=== PATIENT | male | born 1990 | race Caucasian/White ===

== ENCOUNTER 2022-10-23 23:57 | Emergency (ER) | payer MEDICAID, SELFPAY ==
[2022-10-24 00:01] VITALS: BP 121/75; PULSE 75; RESP 16; TEMP 36.6; O2SAT 99; BMI 42.9
[2022-10-24 00:16] LABS: MANUAL DIFF FLAG NO
[2022-10-24 00:17] LABS: Basophils Percent Auto 0.6 % (0-2); Eosinophils Absolute Auto 0.1 X10*3/uL (0.0-0.4); Eosinophils Percent Auto 1.1 % (0-4); Hematocrit 34.9 % (42.0-52.0); Hemoglobin 10.2 g/dl (14.0-18.0); Imm Gran Abs Auto 0.02 X10*3/uL (0.00-0.03); Imm Gran Pct Auto 0.3 % (0.0-0.4); Lymphocytes Absolute Auto 2.2 X10*3/uL (1.2-4.9); Lymphocytes Percent Auto 32.7 % (20-40); Mean Corpuscular HGB Conc 29.2 g/dl (31.0-36.0); Mean Corpuscular Hemoglobin 21.1 pg (27.0-33.0); Mean Corpuscular Volume 72.1 fL (80.0-98.0); Mean Platelet Volume 10.4 fL (9.4-12.4); Monocytes Absolute Auto 0.8 X10*3/uL (0.1-1.2); Monocytes Percent Auto 12.4 % (2-11); Neutrophils Absolute Auto 3.5 x10*3/uL (2.0-8.3); Neutrophils Percent Auto 52.9 % (45-73); Platelet Count 381 X10*3/uL (160-400); Red Blood Count 4.84 X10*6/uL (4.60-5.80); Red Cell Distribution Width 15.3 % (11.0-16.0); White Blood Count 6.6 X10*3/uL (4.8-10.8)
[2022-10-24 00:31] LABS: COVID-19 Test Positive (Negative); IDNOW Serial# BCCEAD1C
[2022-10-24 00:33] LABS: Alanine Aminotransferase 21 U/L (0-40); Alkaline Phosphatase 52 U/L (39-117); Anion Gap 15 (12-20); Aspartate Amino Transferase 27 U/L (5-37); Bilirubin Total 0.3 mg/dL (0.0-1.0); Blood Urea Nitrogen 9 mg/dL (9-16); Calcium 8.4 mg/dL (8.4-10.2); Carbon Dioxide 23 mmol/L (22-29); Chloride 107 mmol/L (96-108); Creatinine Clr Calc Pharmacy 136.1; Estimated Glomerular Filt Rate > 60; Glucose Random 77 mg/dL (60-115); Potassium 4.1 mmol/L (3.3-5.1); Sodium 141 mmol/L (135-145); Total Protein 6.5 g/dL (6.5-8.0)
--- NOTE | 2022-10-24 01:14 | ED.ABDPAIN ---
HPI - Abdominal Pain General Chief Complaint: Abdominal Pain Stated Complaint: Abd pain Time Seen by Provider: 10/24/22 00:46 Source: patient Mode of arrival: ambulatory Limitations: no limitations History of Present Illness HPI narrative: 32-year-old male with no significant past medical history presents to the emergency department today complaining of upper abdominal pain for approximately 48 hours. The patient describes moderate to severe pain left upper quadrant, intermittent, lasting for 5-10 seconds at a time. States when he has the pain, he does get a burning sensation in the throat. Does not notice any improvement or increase in symptoms with lying down or standing up. The patient denies a fever or chills. Has occasional dizziness. No other symptoms at this time. MD elicited complaint: abdominal pain Onset (ago): day(s) (1) Pain Consistency: intermittent Location: LUQ Severity: moderate Quality: cramping, stabbing and sharp Radiation: none Migration to: no migration Exacerbating factors: nothing Relieving factors: nothing Related Data Previous Rx's Medication Instructions Recorded famotidine 40 mg tablet (Pepcid) 40 mg PO DAILY #30 tabs 10/24/22 Allergies Allergy/AdvReac Type Severity Reaction Status Date / Time natalie Allergy Unknown SWELLING, Unverified 08/15/20 15:57 FLUSHING Review of Systems Constitutional: Denies chills, Denies fever(s) and Denies weakness Eyes: Denies diplopia and Denies eye discharge Denies nasal congestion and Denies sore throat Cardiovascular: Denies syncope, Denies Loss of Consciousness, Denies palpitations and Denies dyspnea Respiratory: Reports no additional respiratory complaints and Denies dyspnea Gastrointestinal: Reports abdominal pain, Reports melena, Denies constipation, Reports GI cramping, Reports heartburn, Denies diarrhea and Denies nausea Genitourinary: Reports no additional male genitourinary complaints Musculoskeletal: Reports no additional musculoskeletal complaints, Denies numbness and Denies tingling Skin/Breast: Reports system reviewed and no additional complaints, except as docu and Denies jaundice Denies Abnormal speech present, Denies syncope, Denies numbness, Denies Sensory deficit (Neuro), Denies tingling and Denies weakness Endocrine: Denies palpitations [facility] Past Medical History Attestation statement: The following information was validated with the patient. [facility] Narrative: Past medical, family and social history are unremarkable and noncontributory Source: nursing notes reviewed Social History Social History Advance Directives: No Advance Directives Information Provided: No Physical Exam ED Vital Signs: Vital Signs - 24 hr 10/24/22 00:01 Temperature 97.8 F Pulse Rate 75 Respiratory Rate 16 Blood Pressure 121/75 Pulse Oximetry 99 Oxygen Delivery Method Room Air BMI result Body Mass Index 42.9 Vital signs are Const General: cooperative, no acute distress, alert and awake; No diaphoretic Orientation/consciousness: patient oriented x3 Limitations: no limitations HENMT Head: Yes normal to inspection, Yes normocephalic and Yes atraumatic Ears: hearing grossly normal bilaterally General nose exam: Normal external nose present Face and sinus: Yes normal facial exam Mouth: Normal oral and palatal mucosa present Eyes General: appearance normal, both eyes and all related structures Conjunctivae: conjunctivae normal Sclerae: sclerae normal Pupils: Equal, round and reactive pupils present EOM: EOMs intact bilaterally Neck Neck: Yes normal visual inspection and Yes full ROM Resp Effort & Inspection: normal respiratory effort, normal respiratory pattern and no cough Cardio Rate: regular rate Rhythm: regular rhythm GI Inspection: Yes normal to inspection, No Abdominal wall edema and No distended Palpation (GI): not soft and Tenderness to palpation present (GI) in the LUQ Back/Spine/Pelvis Cervical Spine: normal cervical lordosis and cervical ROM normal Skin General skin exam: no rashes or lesions noted, no jaundice and no pallor Neuro General: patient oriented x3 and CN's II-XI intact bilaterally Cranial nerves: Yes Equal, round and reactive pupils present Cognition (Neuro): normal cognition Speech: No Abnormal speech present Motor exam (neuro): 5/5 motor strength present throughout Sensory Exam: No Sensory deficit (Neuro) Deep tendon reflexes (DTR's): Rt Biceps (C5, C6): 2+, Left biceps reflex intensity grade: 2+, Right patellar reflex intensity grade: 2+ and Left patellar reflex intensity grade: 2+ MDM - Abdominal Pain MDM Narrative Medical decision making narrative: 32-year-old male with abdominal pain normal for 48 hours. Notes a sensation of burning in his throat intermittently as well. Most likely diagnosis is gastritis versus peptic ulcer disease, although her reflux is certainly in the differential. Patient does describe some mild lightheadedness at times, and his hematocrit is slightly low, lending credence to the possibility of a slow, minimal GI bleed. The patient will be started on Pepcid, daily, as well as Maalox p.r.n.. He is instructed to follow-up with his primary care doctor on Wednesday and return for any new concerns or emergencies. Differential Diagnosis Differential diagnosis: Likely gastroenteritis, gastritis and peptic ulcer disease Lab Data Attestation: I reviewed the patient's lab results. Lab results narrative: Hematocrit slightly low at 35, no old for comparison Result diagrams: 10/24/22 00:11 10/24/22 00:11 Labs: Lab Results 10/24/22 10/24/22 10/24/22 Range/Units 00:11 00:11 00:11 WBC 6.6 (4.8-10.8) X10*3/uL RBC 4.84 (4.60-5.80) X10*6/uL Hgb 10.2 L (14.0-18.0) g/dl Hct 34.9 L (42.0-52.0) % MCV 72.1 L (80.0-98.0) fL MCH 21.1 L (27.0-33.0) pg MCHC 29.2 L (31.0-36.0) g/dl RDW 15.3 (11.0-16.0) % Plt Count 381 (160-400) X10*3/uL MPV 10.4 (9.4-12.4) fL Immature Gran % (Auto) 0.3 (0.0-0.4) % Neut % (Auto) 52.9 (45-73) % Lymph % (Auto) 32.7 (20-40) % Mobile % (Auto) 12.4 H (2-11) % Eos % (Auto) 1.1 (0-4) % Baso % (Auto) 0.6 (0-2) % Lymph # (Auto) 2.2 (1.2-4.9) X10*3/uL Mobile # (Auto) 0.8 (0.1-1.2) X10*3/uL Eos # (Auto) 0.1 (0.0-0.4) X10*3/uL Baso # (Auto) 0.0 (0.0-0.2) X10*3/uL Abs Immat Gran (auto) 0.02 (0.00-0.03) X10*3/uL Absolute Neuts (auto) 3.5 (2.0-8.3) x10*3/uL Absolute Nucleated RBC 0.000 (0.0-0.012) X10*3/uL Nucleated RBC % (auto) 0.0 (0.0-0.2) /100WBC Sodium 141 (135-145) mmol/L Potassium 4.1 (3.3-5.1) mmol/L Chloride 107 (96-108) mmol/L Carbon Dioxide 23 (22-29) mmol/L Anion Gap 15 (12-20) BUN 9 (9-16) mg/dL Creatinine 1.07 (0.5-1.4) mg/dL Estim Creat Clear Calc 136.1 Estimated GFR > 60 Random Glucose 77 (60-115) mg/dL Calcium 8.4 (8.4-10.2) mg/dL Total Bilirubin 0.3 (0.0-1.0) mg/dL AST 27 (5-37) U/L ALT 21 (0-40) U/L Alkaline Phosphatase 52 (39-117) U/L Total Protein 6.5 (6.5-8.0) g/dL Albumin 4.0 (3.5-5.0) g/dL COVID-19 (JOSE) Positive A (Negative) COVID-19 Clin Com See Note Discharge Plan Discharge Clinical Impression: Anemia Gastroesophageal reflux disease Qualifiers: Esophagitis presence: esophagitis presence not specified Qualified Code(s): K21.9 - Gastro-esophageal reflux disease without esophagitis Gastritis Qualifiers: Gastritis type: unspecified gastritis Chronicity: acute Gastritis bleeding: presence of bleeding unspecified Qualified Code(s): K29.00 - Acute gastritis without bleeding Patient Disposition: Home, Self-Care Instructions: Diet for Stomach Ulcers and Gastritis (ED), Gastroesophageal Reflux Disease (ED) Prescriptions: New famotidine [Pepcid] 40 mg tablet 40 mg PO DAILY Qty: 30 0RF
--- OUTSIDE RECORDS SUMMARY | 2022-10-24 01:14 | XMS_ITS | Continuity of Care Document ---
:1990 Author Organization [facility] Address [address] [place] [address]- Care Team Providers Name Role Phone Beckie Flores MD Primary Care Physician [phone] Encounter [facility] [place] Date(s): 08/20/22 - 09/19/22 [facility] [address] [place] [address] Attending Physician: Donovan Chavez Admitting Physician: Donovan Chavez Referring Physician: Donovan Chavez Allergies, Adverse Reactions, Alerts No Known Medication Allergies Substance Reaction Severity Status Fruit swelling(natalie) Active Medications hand therapy hand therapy, See Instructions, # 1 each, Refills 2, Tot. Refills 2, Maintenance, 2 a times week. 8 weeks. 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 Refills 1, Maintenance, Diagnosis= traumatic injury/laceration of the biceps triceps both upper extremities.., 12/03/16 17:10:23, Compound Start Date: 12/03/16 Status: Ordered Social History Social History Type Response Smoking Status Never smoker entered on: 08/25/16 Sex Patient Care team information PersonnelName: Beckie Flores MD Address: Address: [address] [place] [address] [address] [place] [address]-
--- OUTSIDE RECORDS SUMMARY | 2022-10-24 01:14 | XMS_ITS | Continuity of Care Document ---
:1990 Author Organization [facility] Address [address] [place] [id number]- Care Team Providers Name Role Phone Not on Staff, PCP Primary Care Physician Unavailable Encounter [facility] [place] Date(s): 10/21/22 - 10/21/[address] [address]- Encounter Diagnosis COVID (Final) - 10/21/22 Diarrhea (Final) - 10/21/22 Discharge Disposition: A-D/C Home Attending Physician: Tasia Parikh MD Admitting Physician: Tasia Parikh MD Referring Physician: Not on Staff, Referring MD Allergies, Adverse Reactions, Alerts No Known Medication [...] 17:10:23, Compound Start Date: 12/03/16 Status: Ordered Problem List Condition Confirmation Course Effective Dates Status Health Stat us Informant COVID-191 Confirmed 10/21/22 Active 1Problem added by Discern Expert Vital Signs Most recent to oldest [Reference Range]: 1 2 Oxygen Saturation [94-100 %] 98 % 98 % (10/21/22 11:43 AM) (10/21/22 9:11 AM) Pulse Rate [55-90 bpm] 89 bpm 104 bpm (10/21/22 11:43 AM) *H* (10/21/22 9:11 AM) Blood Pressure [90-138/55-84 mm Hg] 124/77 mm Hg 126/ 75 mm Hg (10/21/22 11:43 AM) (10/21/22 9:11 AM) Respiratory Rate [16-30 br/min] 20 br/min 20 br/mi n (10/21/22 11:43 AM) (10/21/22 9:11 AM) Temperature [96.8-100.4 DegF] 99.8 DegF 101.1 DegF (10/21/22 11:43 AM) *H* (10/21/22 9:11 AM) Mode of Delivery (Oxygen) Room air Room air (10/21/22 11:43 AM) (10/21/22 9:11 AM) Blood pressure sites Arm, right Arm, right (10/21/22 11:43 AM) (10/21/22 9:11 AM) Temperature Route Oral Oral (10/21/22 11:43 AM) (10/21/22 9:11 AM) Social History Social History Type Response Smoking Status Never smoker entered on: 08/25/16 Sex Patient Care team information Care Team PersonnelName: Not on Staff, PCP Position: [facility] Physician (General Medicine) Member Role: PCP Name: Tasia Parikh MD Position: [facility] ED Medicine MD Member Role: Admitting Physician Address: Address: [address] [place] [address]- Name: Chasity Tran RN Position: [facility] ED RN W/OE and Tasks Member Role: Patient Care Provider Care Team Related PersonsName: DELIA RODRÍGUEZ Address: home [address] [place] [address]
[2022-10-24 01:42] VITALS: BP 119/67; PULSE 79; RESP 14; TEMP 37.2; O2SAT 99
[2022-10-24] MEDS: Magnesium Hydrox/Alum Hydrox 30 ML ORAL.SUSP 15 ML PO (01:49)
[2022-10-24] MEDS: Lidocaine HCl Viscous 2 % 15 ML SOLUTION MUCOUS MEM (01:50)
[2022-10-24] MEDS: Famotidine 20 MG TABLET PO (01:51)
[2022-10-24] MEDS: oxyCODONE HCl Immed Release 5 MG TABLET 10 MG PO (02:42)
== END 2022-10-24 02:45 | disposition home or self-care (01) ==
PROVIDERS: Emergency Provider Emergency Medicine
DX: U07.1 COVID-19 (principal); K29.00 Acute gastritis without bleeding; K21.9 Gastro-esophageal reflux disease without esophagitis; D64.9 Anemia, unspecified
CPT/HCPCS: 80053; 85025; 87635; 99283

== ENCOUNTER 2022-12-16 11:44 | Outpatient (REF) | payer MEDICAID, SELFPAY ==
--- NOTE | ~2022-12-16 | CT_ITS ---
EXAMINATION: CT ABDOMEN AND PELVIS WITH CONTRAST CLINICAL INFORMATION: Severe abdominal pain. Crohn's disease suspected. COMPARISON: None TECHNIQUE: Multidetector volumetric images were obtained from the superior aspect of the liver through the pubic symphysis following administration 85 mL of Omnipaque 350 intravenous contrast. Sagittal and coronal reformatted images were obtained on the technologist's workstation. This CT examination was performed using dose optimization techniques as appropriate, variously including the following: *Automated exposure control *Adjustment of mA and/or kV according to patient size (this includes techniques or standardized protocols for targeted exams where dose is matched to indication/reason for exam; i.e. extremities or head) *Use of iterative reconstruction technique DLP: 737 mGy-cm FINDINGS: Visualized lung bases are well aerated. The liver demonstrates normal size, contour and attenuation. The gallbladder is normal in appearance. The pancreas, spleen and adrenal glands are unremarkable. Symmetrically enhancing kidneys. There is no hydronephrosis of either kidney. Normal distention of the stomach. There is mild diffuse circumferential thickening involving proximal loops of small bowel within the left upper abdomen, nonspecific. There are no dilated loops of small bowel identified. There is a focal area of irregular mucosal thickening involving the proximal aspect of the descending colon with mild adjacent pericolonic stranding (axial image 27/97 series 3 and coronal image 40/93 series 4). The remainder of the colon is unremarkable with only a mild stool burden. Normal caliber abdominal aorta. No retroperitoneal lymphadenopathy. The bladder is decompressed and therefore not accurately evaluated. The prostate gland is normal in size. No gross free pelvic fluid. No inguinal lymphadenopathy. No acute osseous abnormality. CT/CT abdomen pelvis w IV con IMPRESSION: 1. There is a focal area of irregular mucosal thickening involving the proximal aspect of the descending colon with mild adjacent pericolonic stranding. This is a nonspecific finding and may represent a focus of active inflammation, however, a colonic mass is also within the differential. Further evaluation with colonoscopy is recommended. 2. Mild diffuse circumferential thickening involving proximal loops of small bowel within the left upper abdomen. This is a nonspecific finding and may represent a mild enteritis. There are no dilated loops of small bowel identified. Fleischner guidelines were followed. Findings to be called to the ordering clinician by a [facility] Physician Flight Control Manager.
[2022-12-16] MEDS: iohexoL 350 MG/ML 100 ML INFUS..BTL 85 ML IV (14:38)
[2022-12-16] MEDS: Barium Sulfate Oral (Vanilla) 450 ML ORAL.SUSP 900 ML PO (14:46)
== END 2022-12-16 11:45 | disposition home or self-care (01) ==
LOC: HO.CT 11:44
PROVIDERS: PCP Registered Nurse; Visit Provider Registered Nurse
DX: R10.84 Generalized abdominal pain (principal); R85.7 Abnormal histological findings in specimens from digestive organs and abdominal cavity
CPT/HCPCS: 74177; Q9967

== ENCOUNTER 2022-12-23 14:43 | Outpatient (REF) | payer MEDICAID, SELFPAY ==
[2022-12-23 15:03] LABS: MANUAL DIFF FLAG NO
[2022-12-23 15:18] LABS: Basophils Absolute Auto 0.1 X10*3/uL (0.0-0.2); Basophils Percent Auto 0.9 % (0-2); Eosinophils Absolute Auto 0.4 X10*3/uL (0.0-0.4); Eosinophils Percent Auto 4.9 % (0-4); Hematocrit 34.4 % (42.0-52.0); Imm Gran Abs Auto 0.03 X10*3/uL (0.00-0.03); Imm Gran Pct Auto 0.4 % (0.0-0.4); Lymphocytes Absolute Auto 1.8 X10*3/uL (1.2-4.9); Lymphocytes Percent Auto 23.6 % (20-40); Mean Corpuscular HGB Conc 29.1 g/dl (31.0-36.0); Mean Corpuscular Volume 68.9 fL (80.0-98.0); Mean Platelet Volume 11.1 fL (9.4-12.4); Monocytes Absolute Auto 0.6 X10*3/uL (0.1-1.2); Monocytes Percent Auto 7.9 % (2-11); Neutrophils Absolute Auto 4.9 x10*3/uL (2.0-8.3); Neutrophils Percent Auto 62.3 % (45-73); Platelet Count 461 X10*3/uL (160-400); Red Blood Count 4.99 X10*6/uL (4.60-5.80); White Blood Count 7.8 X10*3/uL (4.8-10.8)
[2022-12-23 15:44] LABS: Alanine Aminotransferase 17 U/L (0-40); Albumin Level 3.9 g/dL (3.5-5.0); Alkaline Phosphatase 62 U/L (39-117); Anion Gap 12 (12-20); Aspartate Amino Transferase 23 U/L (5-37); Bilirubin Direct 0.2 mg/dL (0.0-0.5); Bilirubin Total 0.5 mg/dL (0.0-1.0); Blood Urea Nitrogen 10 mg/dL (9-16); C Reactive Protein 3.32 mg/dL (< or = 0.50); Calcium 9.2 mg/dL (8.4-10.2); Carbon Dioxide 25 mmol/L (22-29); Chloride 106 mmol/L (96-108); Estimated Glomerular Filt Rate > 60; Glucose Random 86 mg/dL (60-115); Lipase 23 U/L (8-78); Potassium 4.5 mmol/L (3.3-5.1); Sodium 138 mmol/L (135-145); Total Protein 6.5 g/dL (6.5-8.0)
[2022-12-23 16:34] LABS: Erythrocyte Sedimentation Rate 29 MM/HR (0-15)
== END 2022-12-23 14:44 | disposition home or self-care (01) ==
LOC: HO.LAB 14:43
PROVIDERS: PCP Registered Nurse; Visit Provider Internal Medicine
DX: R10.32 Left lower quadrant pain (principal); R11.0 Nausea; R19.7 Diarrhea, unspecified; R93.3 Abnormal findings on diagnostic imaging of other parts of digestive tract
CPT/HCPCS: 36415; 80048; 80076; 83690; 85025; 85652; 86140

== ENCOUNTER 2022-12-28 11:37 | Day surgery (SDC) | payer MEDICAID, SELFPAY ==
--- NOTE | 2022-12-25 14:24 | HO.ANESPROP2 ---
Documented by User: Martine Hines NP 12/25/22 14:25 HPI - Anesthesia Eval Consult details Narrative: 32yo M for Colonoscopy [facility] Past Medical History Medical History Asthma Surgical History Surgical History History of appendectomy Social History Social History Patient Tobacco Use Status: Never used Tobacco Use of substances other than those prescribed or required for medical reasons: No Advance Directives: No Advance Directives Information Provided: Yes Recently lost weight without trying: Yes How much weight loss: 34pounds or more Nutrition Risks: No Nutritional Risk Meds Allergies Allergy/AdvReac Type Severity Reaction Status Date / Time natalie Allergy Unknown SWELLING, Verified 12/28/22 12:20 FLUSHING Exam Exam Date and Time: December 25, 2022 1424 Pertinent Lab Results Pertinent Lab Results: Laboratory Tests 12/23/22 12/23/22 15:01 15:01 WBC 7.8 Hgb 10.0 L Hct 34.4 L Plt Count 461 H Sodium 138 Potassium 4.5 Chloride 106 Carbon Dioxide 25 BUN 10 Creatinine 1.30 Assessment and Plan Assessment Anesthesia Assessment: Chart Reviewed Documented by User: Juliette Bang MD 12/28/22 12:22 [facility] Past Medical History Medical History Asthma Functional capacity: independent ambulation Surgical History Surgical History History of appendectomy History of Problems with Anesthesia: No Social History Social History Patient Tobacco Use Status: Never used Tobacco Use of substances other than those prescribed or required for medical reasons: No Advance Directives: No Advance Directives Information Provided: Yes Recently lost weight without trying: Yes How much weight loss: 34pounds or more Nutrition Risks: No Nutritional Risk Travel History History of recent travel: No Recent Travel in [facility] Within the Last 8 Weeks: No Meds Allergies Allergy/AdvReac Type Severity Reaction Status Date / Time natalie Allergy Unknown SWELLING, Verified 12/28/22 12:20 FLUSHING Exam Airway Mallampati Class: II TM Dist: >3cm Neck ROM: Full Heart: RRR Lungs: CTA Assessment and Plan Final Anesthetic Review History of Problems with Anesthesia: No ASA Class: I Final Preanesthetic Review: No Changes in Pt Med Stat, Meds/Allgs Chart Reviewed, Consent Obtained/Reviewed and Anes Risks/Benef Reviewed Patient Risk: Low (J) Procedure Risk: Low Anesthetic Plan Anesthetic Plan: MAC: Disposition: Standard PACU
[2022-12-28 11:56] VITALS: BMI 38.0
[2022-12-28 12:02] VITALS: BP 120/64; PULSE 70; RESP 16; TEMP 36.6; O2SAT 96
[2022-12-28] MEDS: Lactated Ringers 1,000 ML 100 ML IVCONT (12:20)
--- NOTE | 2022-12-28 13:39 | HO.ANESPROP2 ---
[facility] Past Medical History Medical History Asthma Functional capacity: independent ambulation Surgical History Surgical History History of appendectomy History of Problems with Anesthesia: No Social History Social History Patient Tobacco Use Status: Never used Tobacco Use of substances other than those prescribed or required for medical reasons: No Advance Directives: No Advance Directives Information Provided: Yes Recently lost weight without trying: Yes How much weight loss: 34pounds or more Nutrition Risks: No Nutritional Risk Meds Allergies Allergy/AdvReac Type Severity Reaction Status Date / Time natalie Allergy Unknown SWELLING, Verified 12/28/22 12:20 FLUSHING Active Medications: Current Medications Albuterol Sulfate (Albuterol Sulfate (0.083%) 2.5 Mg/3 Ml Vial.Neb) 2.5 mg INHALE ONCE PRN PRN Reason: Shortness of Breath/Wheezing Lactated Ringer's (Lr) 1,000 mls @ 100 mls/hr IVCONT .Q10H ALYCIA Last Admin: 12/28/22 12:20 Dose: 100 mls/hr Sodium Biphosphate/Sodium Phosphate (Sodium Phosphate,Llano-Dibasic 133 Ml Enema) 133 ml [place] ONCE PRN PRN Reason: Poor Colonoscopy Prep Results Exam Exam Date and Time: December 28, 2022 1339 Height,Weight and Vital Signs: Height 5 ft 10 in Weight 120.202 kg Last Vital Signs Temp 97.9 F 12/28/22 12:02 Pulse 70 12/28/22 12:02 Resp 16 12/28/22 12:02 BP 120/64 12/28/22 12:02 Pulse Ox 96 12/28/22 12:02 O2 Del Method 12/28/22 12:02 Assessment and Plan Final Anesthetic Review History of Problems with Anesthesia: No ASA Class: II Final Preanesthetic Review: Meds/Allgs Chart Reviewed and Consent Obtained/Reviewed Patient Risk: Low Procedure Risk: Low Anesthetic Plan Anesthetic Plan: MAC: Disposition: Standard PACU
[2022-12-28 14:05] VITALS: BP 96/56; PULSE 82; RESP 16; TEMP 36.1; O2SAT 95
--- NOTE | 2022-12-28 14:10 | PM.OP ---
Brief Operative Note Date of Service: 12/28/22 Pre-op diagnosis: Abnormal CT of colon, change in bowel habits Post-op diagnosis: other (Colon mass c/w carcinoma) Procedure: Colonoscopy to the cecum and TI with biopsies and marking with submucosal ink Surgeon: Ron Jules Anesthesia: MAC Was an Paleology Professor used for this Procedure?: No Estimated blood loss (mL): 5.0 Pathology: other (A. Colon mass 40-50cm) Condition: stable Disposition: PACU
--- NOTE | 2022-12-28 14:14 | HO.POSTANES ---
Post Anesthesia Evaluation Post Anesthesia Evaluation Vital Signs: Vital Signs Temp Pulse Resp BP Pulse Ox O2 Del Method 12/28/22 14:05 97 F 82 16 96/56 L 95 Room Air 12/28/22 12:02 97.9 F 70 16 120/64 96 Room Air Anesthesia: Monitored Mental Status: Awake Pain Control: Satisfactory Nausea/Vomiting: None Hydration: Adequate Anesthesia-Related Issues: No Anes. Related Issues
[2022-12-28 14:20] VITALS: BP 104/61; PULSE 68; RESP 16; O2SAT 96
[2022-12-28 14:35] VITALS: BP 126/61; PULSE 58; RESP 16; O2SAT 98
[2022-12-28 14:50] VITALS: BP 110/51; PULSE 52; RESP 16; TEMP 36.1; O2SAT 98
[2022-12-28 15:05] VITALS: BP 124/74; PULSE 53; RESP 16; TEMP 36.2; O2SAT 100
--- NOTE | 2022-12-28 22:41 | OP_ITS ---
SURGEON: Ron Jules MD INDICATIONS: The patient presents for evaluation of change of bowel habits, abdominal pain, and abnormal CT scan of the colon. Full consent was obtained from him for this, including risks of bleeding and perforation. PREOPERATIVE DIAGNOSIS: POSTOPERATIVE DIAGNOSIS: PROCEDURE PERFORMED: Colonoscopy to the cecum and terminal ileum with biopsies, and placement of submucosal ink lozano. ESTIMATED BLOOD LOSS: COMPLICATIONS: ANESTHESIA: Medication used, monitored anesthesia care. ASSISTANTS: SPECIMENS: PREOPERATIVE DIAGNOSES: Change of bowel habits, abdominal pain, and abnormal CT scan of the colon. POSTOPERATIVE DIAGNOSES: Change of bowel habits, abdominal pain, abnormal CT scan of the colon, colon mass consistent with neoplasm, internal and external hemorrhoids. DESCRIPTION OF PROCEDURE: The patient was placed in the left lateral decubitus position. The digital rectal exam revealed external hemorrhoids. The Olympus video pediatric colonoscope was entered into the rectum and advanced easily to the cecum. Once in the cecum, I did identify normal-appearing cecal pouch with appendiceal orifice and a normal-appearing ileocecal valve. The terminal ileum was cannulated and appeared normal. The scope was withdrawn back into the colon. The entire cecum and ileocecal valve appeared normal. The scope was slowly withdrawn assessing all mucosal surfaces carefully. Preparation was fairly good throughout the colon, although there was a fair amount of liquid and mucus, which had to be irrigated and suctioned away as best as possible. Between the area of 40 and 50 cm was a long, ulcerated, circumferential and very friable lesion consistent with carcinoma. It was not obstructing, but clearly was circumferential and narrow in that area. Multiple biopsies were obtained from it. I did place two submucosal ink lozano just proximal and just distal to the lesion. This did correspond with the abnormalities seen on the CT scan. I did not visualize any other polyps, colitis, or angiodysplasias. In the rectum, the scope was retroflexed, visualizing some internal hemorrhoids, but no other pathology. The rectal mucosa appeared normal. The scope was straightened and withdrawn from the patient. He tolerated the procedure well and was returned to the recovery area in stable condition. IMPRESSION: 1. Probable colon cancer, status post biopsies. 2. Internal and external hemorrhoids. PLAN: The results of the biopsies will be checked. Based on today's findings, he will clearly need a surgical consultation as soon as possible. His recent CT scan did not describe any definitive metastatic disease. He will obviously need Oncology consultation and genetic testing as well. He will need to make sure all of the siblings and other first-degree relatives have been screened with colonoscopy. This has all been discussed with the patient and his significant other in detail prior to his leaving the hospital today. MD ALEJANDRO Sarkar/HALEIGH / [id number] MTDD
== END 2022-12-28 16:06 | disposition home or self-care (01) ==
PROVIDERS: Pathology Cytopathology; PCP Registered Nurse; Visit Provider Internal Medicine
PROC: 0DJD8ZZ Inspection of Lower Intestinal Tract, Via Natural or Artificial Opening Endoscopic (ICD-10-PCS; CPT 45378; principal; 2022-12-28 12:30)
DX: C18.7 Malignant neoplasm of sigmoid colon (principal); R10.9 Unspecified abdominal pain; K64.8 Other hemorrhoids; K64.4 Residual hemorrhoidal skin tags; R19.4 Change in bowel habit; R93.3 Abnormal findings on diagnostic imaging of other parts of digestive tract
CPT/HCPCS: 45380; 81210; 81288; 88305; 88341; 88342

== ENCOUNTER → 2023-01-07 14:33 | Outpatient (BNVA) | payer MEDICAID, SELFPAY | PROVIDERS: PCP Registered Nurse; Referring Provider Internal Medicine; Visit Provider Surgery | DX: C18.6 Malignant neoplasm of descending colon (principal) | CPT/HCPCS: 99202 ==

== ENCOUNTER 2023-01-12 08:21 | Inpatient (IN) | payer MEDICAID, SELFPAY ==
[2023-01-12] VITALS (21 sets, daily range): BP systolic 115–139; BP diastolic 66–87; PULSE 72–110; RESP 12–24; TEMP 36.2–37.1; O2SAT 98–100; BMI 39.0
--- NOTE | ~2023-01-12 | CT_ITS ---
EXAMINATION: CT ABDOMEN AND PELVIS WITH CONTRAST CLINICAL INFORMATION: Postop nausea. History of recent colectomy. COMPARISON: Previous abdominal pelvic CT November 2002 TECHNIQUE: Multidetector volumetric images were obtained from the superior aspect of the liver through the pubic symphysis following administration 85 mL of Omnipaque 350 intravenous contrast. Sagittal and coronal reformatted images were obtained on the technologist's workstation. Oral contrast: Yes This CT examination was performed using dose optimization techniques as appropriate, variously including the following: *Automated exposure control *Adjustment of mA and/or kV according to patient size (this includes techniques or standardized protocols for targeted exams where dose is matched to indication/reason for exam; i.e. extremities or head) *Use of iterative reconstruction technique DLP: 914 mGy-cm FINDINGS: LUNG BASES: There is subsegmental atelectasis at the lung bases. LIVER, GALLBLADDER, AND BILIARY TREE: The liver is normal in size, shape, and attenuation. No focal hepatic lesion or biliary ductal dilatation is present. The gallbladder is unremarkable with no evidence of radiopaque gallstones, gallbladder wall thickening, or obvious pericholecystic inflammatory changes. PANCREAS: Unremarkable. SPLEEN: Unremarkable. ADRENAL GLANDS: Unremarkable. KIDNEYS AND URETERS: The kidneys are normal in size, shape, and attenuation. No hydronephrosis, hydroureter, or calculi seen. No perinephric stranding. BLADDER: Limited visualization due to the patient's arms at his side. GASTROINTESTINAL TRACT: There are surgical clips seen adjacent to the left colon. There is a small amount of ascites in the abdomen and pelvis. There is a small amount of free air. The stomach is dilated and fluid-filled. The proximal small bowel is dilated and fluid-filled. The distal small bowel is collapsed. No definite transition zone is appreciated. Small and large bowel is otherwise normal. The appendix is not seen. ABDOMINAL WALL: No significant hernia is appreciated. Postsurgical changes to the anterior abdominal wall. LYMPH NODES: Normal. VASCULAR: Unremarkable. PELVIC VISCERA: Limited visualization due to the patient's arms at his side. OSSEOUS STRUCTURES: Unremarkable. CT/CT abdomen pelvis w IV con IMPRESSION: Surgical valentín in the left colon. Dilated fluid-filled stomach and dilated fluid-filled proximal small bowel. The distal small bowel does not appear dilated. No definite transition zone is appreciated. Differential would include postoperative ileus and partial small bowel obstruction . Small amount of ascites in the abdomen and pelvis. Small amount of free intraperitoneal air. Fleischner guidelines were followed.
--- NOTE | 2023-01-12 08:09 | MHC.SHP ---
Pre-Procedural Eval Section A Date of Service: 01/12/23 The patient is an INPATIENT: No Changes since office visit: No Cold of Flu in the past 2 weeks, No New Medical Problems, No Changes in Medication and No Patient answered all questions The History & Physical has been completed within 30 days and I have reviewed it.: Yes Section B Chief Complaint: Malignant neoplasm of descending colon Allergies: Allergies Allergy/AdvReac Type Severity Reaction Status Date / Time natalie Allergy Unknown SWELLING, Verified 01/07/23 14:40 FLUSHING Plan I have reviewed the history and physical and performed a pertinent physical examination on my patient. No changes have occurred unless specified. Time Spent With Patient Time: Total time managing care of this patient today ____ minutes.
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
[2023-01-12] MEDS: Lactated Ringers 1,000 ML 50 ML IVCONT (08:28)
[2023-01-12 08:31] LABS: COVID-19 Test Negative (Negative); IDNOW Serial# 9DB6401D
--- NOTE | 2023-01-12 13:48 | P.OP_ITS ---
Operative Note Operative Note Date of Service: 01/12/23 Narrative: Preop diagnosis: Colon cancer, left Postop diagnosis: Colon cancer, at the splenic flexure to the proximal descending colon, bulky, markedly adherent to the spleen with involvement and foreshortening of the mesentery, Procedure: Hand assisted laparoscopic left colon resection to include the splenic flexure Surgeon: Bay Hawkins MD medical administrative assistant: NELSON Walters The patient is a 32-year-old for a CT scan for abdominal pain 3 weeks ago showing colon mass in the proximal descending colon near the splenic flexure. His colonoscopy confirm this as well with biopsies showing adenocarcinoma. He had suggestion of microsatellite instability, and had been sent for genetic testing which was still pending. I therefore explained to him that if he tested positive for HNPCC based on final genetic testing results the best option would be a subtotal colectomy in view of the risk of metachronous disease in the colon. He understood this but wanted to proceed pain and he would not want a subtotal colectomy at this time. He understood the risks, benefits, and alternatives. He was brought to the operating room. He was placed under general anesthesia via endotracheal tube. A Rosario catheter was inserted. The right side was tucked on the side. He was in modified lithotomy position. Abdomen in the perianal areas were prepped and draped in the usual sterile fashion. A surgical time-out was done. The patient received Cefotan 2 g IV preoperatively I made a short incision in the mid abdomen along the midline using blade 15. And this was carried down with electrocautery through the full-thickness of the skin and thick subcutaneous fat. Please note the patient's BMI was 39. The was incised. The peritoneum was entered. Reposition the GelPort and the Lorenzo wound retractor. We insufflated throughout port through the GelPort to a pressure 50 minutes hg. With laparoscopic visualization using a 10 mm 30 degree scope through this port, I inserted a 5/12 mm port epigastric area below the subcostal margin and another/12 the port in the right lower quadrant. The insufflating port was removed from the GelPort. The camera was placed with epigastric port. The patient was placed any right-side down position. Reflected all the bowel loops away from the left side. I was able to directly visualize the left colon and I palpated this all the way to the splenic flexure and the large bulky mass was felt at the splenic flexure itself and the proximal descending colon. I proceeded to divide the ligamentous attachments of the left colon along the white line of Toldt using the LigaSure. This was carried down to the entire left colon but we had encountered significant difficulty because of poor planes as we approach the splenic flexure because of should foreshortening and induration of the mesentery. By examination, we also noted that the splenic flexure with the tumor was markedly adherent to the capsule of the spleen. The patient was placed in head-up position. I continued to therefore maximize mobilization of the left colon by dividing all the fine fibrous attachments. This was extended to the sigmoid as well. I had to insert an additional port at the left lower quadrant to be able to achieve this because of the reach of the LigaSure. I emptied to get around the splenic flexure with the LigaSure ends try to separate the splenic flexure from the spleen itself. A gain, we had very poor planes from the tumor directly abutting the. I therefore approach dissection from the transverse colon. I divided the posterior layer of the greater omentum off of the transverse colon to enter the lesser sac. I continued to separate the omentum from the distal transverse colon to expose the splenic flexure. This was achieved with LigaSure. By doing so was able to visualize the mesentery from superiorly. I proceeded to then trach attempt to separate the splenic flexure from proximal but again we encountered the same difficulty with regards to for planes. I therefore had to periodically use the electrocautery for finer dissection to allow separation of the spleen itself. This involved peeling off the capsule of the spleen and we for had some brisk oozing as we did this. I had apply Surgicel to allow hemostasis. I continued with this manner dissection, carefully the flexure from the spleen, controlling the bleeding periodically as well with pressure using the Surgicel. Eventually, after a long and extended dissection, I was able to separate the spleen from the flexure. It is noted that there was marked foreshortening of the mesentery of the splenic flexure itself and induration because of the very bulky tumor. We had very limited mobilization of the splenic flexure therefore because of this At this time therefore, I had planned on dividing the mesentery from proximal and distal alternating fashion until I reached the splenic flexure. I therefore chose my point of resection in the transverse colon just past the line by geni armenta mesentery defect. I used an Endo-MATT 60 minutes stapler to divide this. I proceeded to then divide the very using the LigaSure 10, with care being taken so as to ensure that we were involving good amount of mesentery for lymph node evaluation. I then proceeded to choose my point of transection in the distal left colon/sigmoid. I created a mesenteric window at 1 point and the Endo-MATT 60 mm stapler to divide this as well. With both transverse colon and the distal descending divided, I therefore put continued to divide the mesentery from both proximal and distal to the tumor, again alternating from each direction until I reached the very foreshortened mesentery. The pedicle was seen and directly applying the splenic flexure itself. I defined this by carefully thinning this out with the LigaSure. Once I achieved circumferential dissection of this pedicle, I used the Endo-MATT vascular stapler to divide this pedicle in a high ligation fashion. I then proceeded to continue to by the rest of the attached mesentery including this very foreshortened end indurated area to complete resection of this entire segment. I sent this for immediate gross examination I then proceeded to repair our stomal and distal limbs for anastomosis. It appeared that we had enough length to do this in a [id number] manner I therefore aligned these 2 limbs together through the incision. We had released the GelPort at this time and had the Lorenzo wound retractor in place. I applied seromuscular sutures with Dexon 3-0 to align this two limbs in a [id number] manner. I opened up the apex of each staple line. I inserted each arm of the Endo-MATT 60 mm stapler, towards the mesenteric border. I made sure that there was no bowel loops or mesentery trapped within this stapler. I then fired the stapler to create our [id number] anastomosis. I completed the anastomosis by closing the enterotomy with a TA 60 mm stapler, making sure that we had full layer involvement at the staple line I examined staple lines and this all appeared intact. There was no tension on the anastomosis. Both limbs appeared well vascularized and not ischemic. I applied seromuscular sutures to reinforce the staple line at the enterotomy. The site appeared hemostatic. I could palpate the anastomosis between thumb and index finger this appeared patent. I then placed the bowel loops back into the peritoneal cavity. I pulled up the terminal ileum and read the entire small bowel starting from this segment all way to the ligament of Treitz. There was no evidence of any bowel injury. I replaced the follows into the peritoneal cavity. I re-examined the anastomosis and this appeared hemostatic. I positioned the omentum to cover the anastomosis. I examined all 4 quadrants. I visually confirmed hemostasis including on the divided mesentery as well as the Once hemostasis was confirmed, I had irrigated with Irrisept. I suctioned out the irrigant fluidAnd re-irrigated with normal saline I then deflated. I removedthe Lorenzo wound retractor and the GelPort. I closed the fascia at the midline with running PDS 1 looped stitch. I closed all the skin incisions with skin valentín. I infiltrated all incisions with Marcaine 0.5% for postop analgesia. Dressings were applied. The procedure was completed The patient tolerated procedure well. There were no immediate complications. Initial final counts of sponges and instruments were correct. Estimated blood loss about 100 cc The patient was extubated without difficulty and transferred to the recovery room with stable vital signs. There was note of good urine output which also was clear. At the end of the procedure, I discussed the immediate gross examination with the pathologist. He mentioned that the medial margins may be positive. This is likely along the area of the splenic flexure where the tumor was very intimately adherent to. Colon Resection Tumor location: Splenic flexure and Descending colon Extent of lymphovascular resection Transverse colon: distal transverse Splenic flexure: removed Descending colon: proximal left colon General Surg. - Synoptic Notes Colon Resection Tumor location: Splenic flexure and Descending colon Extent of Lymphovascular Resection: Transverse colon: distal transverse Splenic flexure: removed Descending colon: proximal left colon
[2023-01-12] MEDS: HYDROmorphone HCl 0.5 MG/0.5 ML SYRINGE 0.25 MG IVPUSH ×4 (14:52→15:45)
--- NOTE | 2023-01-12 15:44 | PM.EVENT ---
Event Note Date of Service: 01/12/23 Event Note: Seen postop Underwent resection of the left colon/splenic flexure for a bulky tumor Seems to have adequate pain control Good urine output Stable vital signs Abdomen soft Continue pain management Incentive spirometry Family updated Time Spent With Patient Time: Total time managing care of this patient today ____ minutes.
[2023-01-12] MEDS: Lactated Ringers 1,000 ML 80 ML IVCONT (16:24)
[2023-01-12] MEDS: Acetaminophen 1,000 MG/100 ML PIGGYBACK 400 MG IV ×2 (16:25→21:55)
[2023-01-12] MEDS: Ascorbic Acid 500 MG TABLET PO (21:15)
[2023-01-12] MEDS: Famotidine 20 MG TABLET PO (21:15)
[2023-01-13] VITALS (11 sets, daily range): BP systolic 108–123; BP diastolic 56–67; PULSE 60–81; RESP 17–20; TEMP 36.3–37.3; O2SAT 91–99; BMI 39.0
[2023-01-13] MEDS: Morphine Sulfate 4 MG/ML CARTRIDGE IVPUSH ×5 (00:59→20:05)
[2023-01-13] MEDS: Acetaminophen 1,000 MG/100 ML PIGGYBACK 400 MG IV ×4 (04:12→22:17)
[2023-01-13] MEDS: Lactated Ringers 1,000 ML 80 ML IVCONT ×2 (04:15→17:59)
[2023-01-13 06:32] LABS: MANUAL DIFF FLAG NO
[2023-01-13 06:46] LABS: Basophils Percent Auto 0.2 % (0-2); Hematocrit 30.6 % (42.0-52.0); Imm Gran Abs Auto 0.04 X10*3/uL (0.00-0.03); Imm Gran Pct Auto 0.4 % (0.0-0.4); Lymphocytes Absolute Auto 1.3 X10*3/uL (1.2-4.9); Lymphocytes Percent Auto 11.7 % (20-40); Mean Corpuscular HGB Conc 29.4 g/dl (31.0-36.0); Mean Corpuscular Hemoglobin 20.1 pg (27.0-33.0); Mean Corpuscular Volume 68.3 fL (80.0-98.0); Mean Platelet Volume 11.8 fL (9.4-12.4); Monocytes Absolute Auto 1.1 X10*3/uL (0.1-1.2); Monocytes Percent Auto 9.7 % (2-11); Neutrophils Absolute Auto 8.7 x10*3/uL (2.0-8.3); Platelet Count 450 X10*3/uL (160-400); Red Blood Count 4.48 X10*6/uL (4.60-5.80); Red Cell Distribution Width 16.1 % (11.0-16.0); White Blood Count 11.2 X10*3/uL (4.8-10.8)
[2023-01-13 06:57] LABS: Anion Gap 12 (12-20); Blood Urea Nitrogen 7 mg/dL (9-16); Calcium 8.7 mg/dL (8.4-10.2); Carbon Dioxide 26 mmol/L (22-29); Chloride 107 mmol/L (96-108); Creatinine Clr Calc Pharmacy 144.2; Estimated Glomerular Filt Rate > 60; Glucose Fasting 109 mg/dL (60-99); Potassium 4.4 mmol/L (3.3-5.1); Sodium 141 mmol/L (135-145)
--- NOTE | 2023-01-13 07:57 | P.PNGS_ITS ---
Subjective Subjective Date of Service: 01/13/23 <Varsha Walters PA-C - Last Filed: 01/13/23 08:01> 01/13/23 <Bay Hawkins MD - Last Filed: 01/13/23 11:02> Interval history: Very sore this morning. Reports diffuse abd pain but more increased at incision. Denies flatus. Occasionally having some nausea but tolerated some liquids last night. Has not been OOB. <Varsha Walters PA-C - Last Filed: 01/13/23 08:01> Physical Exam Vital Signs: Vital Signs: Last Vital Signs Temp 99.1 F 01/13/23 04:00 Pulse 62 01/13/23 04:00 Resp 18 01/13/23 04:42 BP 114/59 L 01/13/23 04:00 Pulse Ox 98 01/13/23 04:00 O2 Del Method 01/13/23 04:00 O2 Flow Rate 2 01/13/23 04:00 BMI result Body Mass Index 39.0 <Varsha Walters PA-C - Last Filed: 01/13/23 08:01> Const: General: comfortable, no acute distress and alert <Varsha Walters PA-C - Last Filed: 01/13/23 08:01> Orientation/consciousness: patient oriented x3 <AZALEA Colon Last Filed: 01/13/23 08:01> Resp: Effort & Inspection: normal respiratory effort <Varsha Walters PA-C - Last Filed: 01/13/23 08:01> GI: Inspection: No distended and Yes incision (dressing c/d/i) <Varsha Walters PA-C - Last Filed: 01/13/23 08:01> Palpation (GI): Soft to palpation, Tenderness to palpation present (GI), no guarding and not rigid <AZALEA Colon Last Filed: 01/13/23 08:01> Percussion: Yes normal to percussion <AZALEA Colon Last Filed: 01/13/23 08:01> Skin: General skin exam: no rashes or lesions noted <AZALEA Colon Last Filed: 01/13/23 08:01> Neuro: General: patient oriented x3 <Varsha Walters PA-C - Last Filed : 01/13/23 08:01> Objective Data Active Medications Ascorbic Acid (Ascorbic Acid 500 Mg Tablet) 500 mg PO BID [facility] Last Admin: 01/12/23 21:15 Dose: 500 mg Documented By: SALIMA Famotidine (Famotidine 20 Mg Tablet) 20 mg PO BEDTIME [facility] Last Admin: 01/12/23 21:15 Dose: 20 mg Documented By: SALIMA Ferrous Sulfate (Ferrous Sulfate 324 Mg Tablet.Dr) 324 mg PO BID [facility] Last Admin: 01/12/23 21:18 Dose: Not Given Documented By: SALIMA Non-Admin Reason: Patient Refused Lactated Ringer's (Lr) 1,000 mls @ 80 mls/hr IVCONT .[id number] [facility] Last Admin: 01/13/23 04:15 Dose: 80 mls/hr Documented By: GEETA Acetaminophen (Ofirmev) 1,000 mg in 100 mls @ 400 mls/hr IV Q6H [facility] Last Infusion: 01/13/23 04:27 Dose: 0 mls/hr Documented By: GEETA Morphine Sulfate (Morphine Sulfate 4 Mg/Ml Cartridge) 4 mg IVPUSH Q3H PRN; Protocol PRN Reason: Pain, Severe (Pain Scale 7-10) Last Admin: 01/13/23 00:59 Dose: 4 mg Documented By: GEETA Ondansetron HCl (Ondansetron Hcl 4 Mg/2 Ml Vial) 4 mg IVPUSH Q6H PRN PRN Reason: Nausea Oxycodone HCl (Oxycodone Hcl Immed Release 5 Mg Tablet) 5 mg PO Q4H PRN PRN Reason: Pain, Moderate (Pain Scale 4-6 Oxycodone HCl (Oxycodone Hcl Immed Release 5 Mg Tablet) 10 mg PO Q4H PRN PRN Reason: Pain, Severe (Pain Scale 7-10) Sodium Chloride (0.9 % Sodium Chloride Flush 3 Ml Syringe) 3 ml IVFLUSH QSHIFT [facility] Last Admin: 01/13/23 00:45 Dose: Not Given Documented By: GEETA Non-Admin Reason: IV Running <Varsha Walters PA-C - Last Filed: 01/13/23 08:01> Labs CBC & Chem 7: 01/13/23 05:58 01/13/23 05:58 <Varsha Walters PA-C - Last Filed: 01/13/23 08:01> Labs: Laboratory Results - last 24 hr 01/12/23 01/12/23 01/13/23 07:42 08:39 05:58 MCV 68.3 L MCH 20.1 L MCHC 29.4 L RDW 16.1 H Plt Count 450 H MPV 11.8 Immature Gran % (Auto) 0.4 Neut % (Auto) 78.0 H Lymph % (Auto) 11.7 L Rowan % (Auto) 9.7 Eos % (Auto) 0.0 Baso % (Auto) 0.2 Lymph # (Auto) 1.3 Rowan # (Auto) 1.1 Eos # (Auto) 0.0 Baso # (Auto) 0.0 Abs Immat Gran (auto) 0.04 H Absolute Neuts (auto) 8.7 H Absolute Nucleated RBC 0.000 Nucleated RBC % (auto) 0.0 Anion Gap Estim Creat Clear Calc Estimated GFR Fasting Glucose Calcium COVID-19 (JOSE) Negative COVID-19 Clin Com See Note Blood Type O Positive Antibody Screen NEGATIVE 01/13/23 05:58 MCV MCH MCHC RDW Plt Count MPV Immature Gran % (Auto) Neut % (Auto) Lymph % (Auto) Rowan % (Auto) Eos % (Auto) Baso % (Auto) Lymph # (Auto) Rowan # (Auto) Eos # (Auto) Baso # (Auto) Abs Immat Gran (auto) Absolute Neuts (auto) Absolute Nucleated RBC Nucleated RBC % (auto) Anion Gap 12 Estim Creat Clear Calc 144.2 Estimated GFR > 60 Fasting Glucose 109 H Calcium 8.7 D COVID-19 (JOSE) COVID-19 Clin Com Blood Type Antibody Screen <Varsha Walters PA-C - Last Filed: 01/13/23 08:01> Procedures Date of Service Date of Service: 01/13/23 <Varsha Walters PA-C - Last Filed: 01/13/23 08:01> Progress Note: A&P Assessment and plan (1) Carcinoma of descending colon: Status: Acute <Varsha Walters PA-C - Last Filed: 01/13/23 08:01> Assessment and Plan: Complains of pain on incisions No events overnight Good urine output Abdomen soft Dressings dry Continue pain management Incentive spirometry Keep on clear liquids Await return of GI function Seen and examined independently at bedside - updated <Bay Hawkins MD - Last Filed: 01/13/23 11:02> (2) S/P left colectomy: Status: Acute <Varsha Walters PA-C - Last Filed: 01/13/23 08:01> Assessment and Plan: 32 year old male with colon CA of splenic flexure now POD #1 s/p MARTIR left colectomy, splenic flexure. He is doing fairly well post op. C/o abd pain. VSS. Abd exam benign with appropriate post op tenderness, dressings c/d/i. AM labs reviewed- leukocytosis likely reactive. D/c harrington. Will continue clear liquids for now. Await GI fu nction. Encouraged OOB/IS use. Cont pain control. Await pathology. <Varsha Walters PA-C - Last Filed: 01/13/23 08:01> Time Spent With Patient Time: Total time managing care of this patient today ____ minutes. <Varsha Walters PA-C - Last Filed: 01/13/23 08:01> Quality Stroke Does the patient have a stroke diagnosis?: No <Varsha Walters PA-C - Last Filed: 01/13/23 08:01> VTE Prior VTE?: No <Varsha Walters PA-C - Last Filed: 01/13/23 08:01> VTE Risk Level:: Surgical - moderate <Varsha Walters PA-C - Last Filed: 01/13/23 08:01> VTE Device Contraindication: N/A - Device Ordered <Varsha Walters PA-C - Last Filed: 01/13/23 08:01> VTE Drug Contraindication: N/A - Med Ordered <AZALEA Colon Last Filed: 01/13/23 08:01>
[2023-01-13] MEDS: Ascorbic Acid 500 MG TABLET PO ×2 (08:06→20:07)
--- NOTE | 2023-01-13 09:17 | MHC.CM.PN ---
PATIENT LIVES WITH SIGNIFICANT OTHER NO DME OR [facility] SERVICES HE IS FULLY INDEPENDENT. CASE MANAGEMENT CAN ASSIST WITH HCP COMPLETION IF HE CHOOSES AN AGENT DURING THIS STAY HE IS HOPING FOR HOME - SELF CARE
--- NOTE | 2023-01-13 09:58 | P.CDIC_ITS ---
CDI Concurrent Query Documentation Clarification: PHYSICIAN'S DOCUMENTATION REQUEST Date of Query: 01/13/23 1002 Patient Name: Raudel Farooq Admit Date: 01/12/23 Dear Doctor, A review of the medical record indicates additional documentation may be needed. Please review below and update the documentation accordingly. Clinical Indicators: Is there a diagnosis that correlates with these lab findings below: Risk Factors/Clinical Indicators/Treatments BMI: 39.0 Height: 5ft 10in Weight: 123.377kg If possible, please provide an associated diagnosis related to the abnormal BMI, such as: BMI: * Severe or Morbid Obesity * Obesity * Due to excess calories * Drug induced * Due to other cause * Other (please specify) * Unable to determine Use of terms such as suspected, likely, concern for, or probable (associated with a specific diagnosis that is being evaluated, monitored, or treated as if it exists) are acceptable and can be coded in the inpatient setting, when documented at the time of discharge. Thank you, Karmen Quinones MS, RN, CCRN Extension: [phone] Please use your independent medical judgment in providing your response. THIS QUERY IS PART OF THE PERMANENT MEDICAL RECORD Provider Response: Other Other Diagnosis: Pt has obesity likely secondary to excess calories BMI is 39
--- NOTE | 2023-01-13 14:22 | HO.POSTANES ---
Post Anesthesia Evaluation Post Anesthesia Evaluation Vital Signs: Vital Signs Temp Pulse Resp BP Pulse Ox O2 Del Method O2 Flow Rate 01/13/23 11:39 74 18 116/60 95 Room Air 01/13/23 08:00 98.0 F 61 18 108/59 L 95 Nasal Cannula 2 01/13/23 04:42 18 01/13/23 04:00 99.1 F 62 20 114/59 L 98 Nasal Cannula 2 Anesthesia: General Endotracheal-GETA Mental Status: Awake Pain Control: Satisfactory (incisional pain) Nausea/Vomiting: Mild Hydration: Adequate Anesthesia-Related Issues: No Anes. Related Issues
--- NOTE | 2023-01-13 15:11 | MHC.CLN ---
NUTRITION CONSULT FOR WEIGHT LOSS. CLEAR LIQUID DIET. ADDING ENSURE CLEAR TO PROVIDE ADDITIONAL 720 KCALS, 24 G PROTEIN. REPORTED THAT [employer] PRODUCTS BOTHERING HIM. COMMUNICATED ADDITION OF ENSURE CLEAR AND FOOD PREFERENCE TO KITCHEN. SIGNIFICANT WEIGHT LOSS X 3 MONTHS WITH DX COLON CANCER. FOLLOW FOR INTAKE AND DIET ADVANCEMENT.
--- NOTE | 2023-01-13 16:34 | PC.NURSE ---
Oxygen Sat down to 89 when patient asleep,Oxygen applied,Dr. Hawkins notified,Oxygen Sat on 2 l 97%
--- NOTE | 2023-01-13 16:49 | PM.EVENT ---
Event Note Date of Service: 01/13/23 Event Note: was out of bed to recliner for a long time voiding freely without Rosario complaints of incisional pain appropriate to postop abdomen soft pain management incentive spirometry keep on clear liquids Time Spent With Patient Time: Total time managing care of this patient today ____ minutes.
[2023-01-13] MEDS: oxyCODONE HCl Immed Release 5 MG TABLET 10 MG PO (17:59)
[2023-01-13] MEDS: Throat Lozenge, Medicated LOZENGE 1 LOZENGE MUCOUS MEM (18:02)
[2023-01-13] MEDS: Famotidine 20 MG TABLET PO (20:07)
[2023-01-13] MEDS: ondansetron HCL 4 MG/2 ML VIAL IVPUSH (22:23)
[2023-01-14] MEDS: Morphine Sulfate 4 MG/ML CARTRIDGE IVPUSH ×2 (01:23→09:27)
[2023-01-14 03:55] VITALS: BP 110/60; PULSE 68; RESP 18; TEMP 36.5; O2SAT 97
[2023-01-14] MEDS: Acetaminophen 1,000 MG/100 ML PIGGYBACK 400 MG IV ×4 (04:25→21:40)
[2023-01-14] MEDS: ondansetron HCL 4 MG/2 ML VIAL IVPUSH ×4 (04:32→19:43)
[2023-01-14] MEDS: Throat Lozenge, Medicated LOZENGE 1 LOZENGE MUCOUS MEM (06:01)
[2023-01-14] MEDS: Lactated Ringers 1,000 ML 80 ML IVCONT ×2 (06:01→19:42)
[2023-01-14 08:00] VITALS: BP 134/83; PULSE 61; RESP 18; TEMP 36.7; O2SAT 98
--- NOTE | 2023-01-14 08:29 | PM.PNGS ---
Subjective Subjective Date of Service: 01/14/23 <Varsha Walters PA-C - Last Filed: 01/14/23 08:34> 01/14/23 <Bay Hawkins MD - Last Filed: 01/14/23 10:18> Interval history: Feels sore this morning but improved over all. Reports some persistent nausea but no vomiting. Was able to get OOB to recliner yesterday. <Varsha Walters PA-C - Last Filed: 01/14/23 08:34> Physical Exam Vital Signs: Vital Signs: Last Vital Signs Temp 98.1 F 01/14/23 08:00 Pulse 61 01/14/23 08:00 Resp 18 01/14/23 08:00 BP 134/83 01/14/23 08:00 Pulse Ox 98 01/14/23 08:00 O2 Del Method 01/14/23 08:00 O2 Flow Rate 2 01/13/23 16:22 BMI result Body Mass Index 39.0 <Varsha Walters PA-C - Last Filed: 01/14/23 08:34> Const: General: comfortable and alert <Varsha Walters PA-C - Last Filed: 01/14/23 08:34> Orientation/consciousness: patient oriented x3 <Varsha Walters PA-C - Last Filed: 01/14/23 08:34> Resp: Effort & Inspection: normal respiratory effort <Varsha Walters PA-C - Last Filed: 01/14/23 08:34> GI: Inspection: No distended and Yes incision (clean) <Varsha Walters PA-C - Last Filed: 01/14/23 08:34> Palpation (GI): Soft to palpation, Tenderness to palpation present (GI) (incisional), no guarding and not rigid <AZALEA Colon Last Filed: 01/14/23 08:34> Percussion: Yes normal to percussion <AZALEA Colon Last Filed: 01/14/23 08:34> Skin: General skin exam: no rashes or lesions noted <AZALEA Colon Last Filed: 01/14/23 08:34> Neuro: General: patient oriented x3 <Varsha Walters PA-C - Last Filed: 01/14/23 08:34> Extrem: General: Yes no clubbing, cyanosis or edema <Varsha Walters PA-C - Last Filed: 01/14/23 08:34> Objective Data Active Medications Ascorbic Acid (Ascorbic Acid 500 Mg Tablet) 500 mg PO BID [facility] Last Admin: 01/13/23 20:07 Dose: 500 mg Documented By: SALIMA Benzocaine (Throat Lozenge, Medicated Lozenge) 1 lozenge MUCOUS MEM Q2H PRN PRN Reason: Sore Throat Last Admin: 01/14/23 06:01 Dose: 1 lozenge Documented By: GEETA Famotidine (Famotidine 20 Mg Tablet) 20 mg PO BEDTIME [facility] Last Admin: 01/13/23 20:07 Dose: 20 mg Documented By: SALIMA Ferrous Sulfate (Ferrous Sulfate 324 Mg Tablet.) 324 mg PO BID [facility] Last Admin: 01/13/23 20:08 Dose: Not Given Documented By: SALIMA Non-Admin Reason: Patient Refused Lactated Ringer's (Lr) 1,000 mls @ 80 mls/hr IVCONT .[id number] [facility] Last Admin: 01/14/23 06:01 Dose: 80 mls/hr Documented By: GEETA Acetaminophen (Ofirmev) 1,000 mg in 100 mls @ 400 mls/hr IV Q6H [facility] Last Infusion: 01/14/23 04:48 Dose: 0 mls/hr Documented By: GEETA Morphine Sulfate (Morphine Sulfate 4 Mg/Ml Cartridge) 4 mg IVPUSH Q3H PRN; Protocol PRN Reason: Pain, Severe (Pain Scale 7-10) Last Admin: 01/14/23 01:23 Dose: 4 mg Documented By: GEETA Ondansetron HCl (Ondansetron Hcl 4 Mg/2 Ml Vial) 4 mg IVPUSH Q6H PRN PRN Reason: Nausea Last Admin: 01/14/23 04:32 Dose: 4 mg Documented By: GEETA Oxycodone HCl (Oxycodone Hcl Immed Release 5 Mg Tablet) 5 mg PO Q4H PRN PRN Reason: Pain, Moderate (Pain Scale 4-6 Oxycodone HCl (Oxycodone Hcl Immed Release 5 Mg Tablet) 10 mg PO Q4H PRN PRN Reason: Pain, Severe (Pain Scale 7-10) Last Admin: 01/13/23 17:59 Dose: 10 mg Documented By: SALIMA Sodium Chloride (0.9 % Sodium Chloride Flush 3 Ml Syringe) 3 ml IVFLUSH QSHIFT [facility] Last Admin: 01/14/23 00:09 Dose: Not Given Documented By: GEETA Non-Admin Reason: IV Running <Varsha Walters PA-C - Last Filed: 01/14/23 08:34> Labs CBC & Chem 7: 01/13/23 05:58 01/13/23 05:58 <AZALEA Colon Last Filed: 01/14/23 08:34> Procedures Date of Service Date of Service: 01/14/23 <AZALEA Colon Last Filed: 01/14/23 08:34> Progress Note: A&P Assessment and plan (1) S/P left colectomy: Status: Acute <Varsha Walters PA-C - Last Filed: 01/14/23 08:34> Assessment and Plan: Had nausea last night was better this morning pain seems adequately controlled looks well abdomen soft with appropriate tenderness encouraged to get out of bed pain management at bedside seen and examined independently <Bay Hawkins MD - Last Filed: 01/14/23 10:18> (2) Carcinoma of descending colon: Status: Acute <Varsha Walters PA-C - Last Filed: 01/14/23 08:34> Assessment and Plan: 32 year old male with colon CA of splenic flexure now POD #2 s/p MARTIR left colectomy, splenic flexure. Continues to do fairly well post op but c/o abd pain and nausea. VSS. Abd exam benign with appropriate post op tenderness, incisions clean. Will continue clear liquids for now. Await GI function. Encouraged OOB and ambulation of halls today, ambulation to bathroom/IS use. Cont pain control. Await pathology. <Varsha Walters PA-C - Last Filed: 01/14/23 08:34> Time Spent With Patient Time: Total time managing care of this patient today ____ minutes. <Varsha Walters PA-C - Last Filed: 01/14/23 08:34> Quality Stroke Does the patient have a stroke diagnosis?: No <Varsha Walters PA-C - Last Filed: 01/14/23 08:34> VTE Prior VTE?: No <Varsha Walters PA-C - Last Filed: 01/14/23 08:34> VTE Risk Level:: Surgical - moderate <Varsha Walters PA-C - Last Filed: 01/14/23 08:34> VTE Device Contraindication: N/A - Device Ordered <Varsha Walters PA-C - Last Filed: 01/14/23 08:34> VTE Drug Contraindication: N/A - Med Ordered <Varsha Walters PA-C - Last Filed: 01/14/23 08:34>
[2023-01-14] MEDS: Heparin Sodium,Porcine 5,000 UNIT/ML VIAL 5000 UNIT SUBCUT ×2 (09:27→17:50)
[2023-01-14] MEDS: Ascorbic Acid 500 MG TABLET PO ×2 (09:31→21:42)
[2023-01-14] MEDS: 0.9 % Sodium Chloride Flush 3 ML SYRINGE IVFLUSH ×2 (09:31→19:44)
[2023-01-14] MEDS: Simethicone 80 MG TAB.CHEW PO ×2 (11:24→17:48)
[2023-01-14] MEDS: HYDROmorphone HCl 0.5 MG/0.5 ML SYRINGE IVPUSH ×3 (14:49→22:13)
[2023-01-14 15:20] VITALS: BP 133/86; PULSE 62; RESP 18; TEMP 36.2; O2SAT 92
--- NOTE | 2023-01-14 15:26 | PM.EVENT ---
Event Note Date of Service: 01/14/23 Event Note: as per nurse - was not getting good pain control with Morphine and c/o nausea switched to Dilaudid he denies flatus abd soft stable VS was in retention all day - I told him he will need Rosario if he did not void by 3 pm - he voided good amounts thereafter on urinal pain nausea meds await return of GI function Time Spent With Patient Time: Total time managing care of this patient today ____ minutes.
[2023-01-14] MEDS: Pantoprazole Sodium 40 MG/10 ML VIAL IVPUSH (16:00)
[2023-01-14] MEDS: Ferrous Sulfate 324 MG TABLET.DR PO (21:42)
[2023-01-14] MEDS: Famotidine 20 MG TABLET PO (21:42)
--- NOTE | 2023-01-14 22:59 | PC.NURSE ---
pt was actively vomiting with yellow fluid 100 mL, pain wasn't control, pt was crying, Dr. Hawkins notified, ok to give extra dose of Dilaudid now , at 21:56 and Dilaudid 5mg IV q2h prn. given Dilaudid and Ofirmev. now his pain 03/08. encourage to him use the I.S. 1500 mL x 5 times.
[2023-01-15] VITALS (7 sets, daily range): BP systolic 114–136; BP diastolic 65–83; PULSE 71–100; RESP 16–20; TEMP 36.2–36.7; O2SAT 94–97
[2023-01-15] MEDS: Heparin Sodium,Porcine 5,000 UNIT/ML VIAL 5000 UNIT SUBCUT ×3 (00:50→16:05)
[2023-01-15] MEDS: HYDROmorphone HCl 0.5 MG/0.5 ML SYRINGE IVPUSH ×7 (00:50→21:39)
[2023-01-15] MEDS: ondansetron HCL 4 MG/2 ML VIAL IVPUSH ×3 (03:21→16:03)
[2023-01-15] MEDS: Acetaminophen 1,000 MG/100 ML PIGGYBACK 400 MG IV ×4 (04:39→22:20)
--- NOTE | 2023-01-15 05:22 | PC.NURSE ---
pt was actively vomited 2 times. I explained to him NGT is available, pt denied to have NGT.
[2023-01-15] MEDS: Pantoprazole Sodium 40 MG/10 ML VIAL IVPUSH ×2 (05:26→16:03)
[2023-01-15] MEDS: Ascorbic Acid 500 MG TABLET PO ×2 (08:24→21:38)
[2023-01-15] MEDS: 0.9 % Sodium Chloride Flush 3 ML SYRINGE IVFLUSH ×2 (08:27→21:39)
[2023-01-15] MEDS: Lactated Ringers 1,000 ML 80 ML IVCONT ×2 (08:27→21:38)
--- NOTE | 2023-01-15 08:37 | PM.PNGS ---
Subjective Subjective Date of Service: 01/15/23 <Varsha Walters PA-C - Last Filed: 01/15/23 08:40> 01/15/23 <Bay Hawkins MD - Last Filed: 01/15/23 10:16> Interval history: Persistent nausea and vomiting over night. On zofran and phenergan without relief. REports he is getting OOB and ambulating but staff reports he isnt getting OOB. Denies flatus. C/o incisional pain. <Varsha Walters PA-C - Last Filed: 01/15/23 08:40> Physical Exam Vital Signs: Vital Signs: Last Vital Signs Temp 97.2 F 01/15/23 07:11 Pulse 76 01/15/23 07:11 Resp 18 01/15/23 07:11 BP 136/80 01/15/23 07:11 Pulse Ox 97 01/15/23 07:11 O2 Del Method 01/15/23 07:11 O2 Flow Rate 2 01/15/23 07:11 BMI result Body Mass Index 39.0 <Varsha Walters PA-C - Last Filed: 01/15/23 08:40> Const: General: no acute distress and alert <AZALEA Colon Last Filed: 01/15/23 08:40> Orientation/consciousness: patient oriented x3 <Varsha Walters PA-C - Last Filed: 01/15/23 08:40> Resp: Effort & Inspection: normal respiratory effort <Varsha Walters PA-C - Last Filed: 01/15/23 08:40> GI: Inspection: No distended and Yes incision (clean) <Varsha Walters PA-C - Last Filed: 01/15/23 08:40> Palpation (GI): Soft to palpation, Tenderness to palpation present (GI) (incisional) with no rebound tenderness, no guarding and not rigid <AZALEA Colon Last Filed: 01/15/23 08:40> Percussion: Yes normal to percussion <AZALEA Colon Last Filed: 01/15/23 08:40> Skin: General skin exam: no rashes or lesions noted <Varsha Walters PA-C - Last Filed: 01/15/23 08:40> Neuro: General: patient oriented x3 and moves all extremities <Varsha Walters PA-C - Last Filed: 01/15/23 08:40> Objective Data Active Medications Ascorbic Acid (Ascorbic Acid 500 Mg Tablet) 500 mg PO BID [facility] Last Admin: 01/15/23 08:24 Dose: 500 mg Documented By: ANDRE Benzocaine (Throat Lozenge, Medicated Lozenge) 1 lozenge MUCOUS MEM Q2H PRN PRN Reason: Sore Throat Last Admin: 01/14/23 06:01 Dose: 1 lozenge Documented By: GEETA Famotidine (Famotidine 20 Mg Tablet) 20 mg PO BEDTIME [facility] Last Admin: 01/14/23 21:42 Dose: 20 mg Documented By: NIXON Ferrous Sulfate (Ferrous Sulfate 324 Mg Tablet.Dr) 324 mg PO BID [facility] Last Admin: 01/15/23 08:26 Dose: Not Given Documented By: ANDRE Non-Admin Reason: Patient Refused Heparin Sodium (Porcine) (Heparin Sodium,Porcine 5,000 Unit/Ml Vial) 5,000 unit SUBCUT Q8H [facility] Last Admin: 01/15/23 08:25 Dose: 5,000 unit Documented By: ANDRE Hydromorphone HCl (Hydromorphone Hcl 0.5 Mg/0.5 Ml Syringe) 0.5 mg IVPUSH Q2H PRN; Protocol PRN Reason: Pain, Severe (Pain Scale 7-10) Last Admin: 01/15/23 08:16 Dose: 0.5 mg Documented By: ANDRE Lactated Ringer's (Lr) 1,000 mls @ 80 mls/hr IVCONT .[id number] [facility] Last Admin: 01/15/23 08:27 Dose: 80 mls/hr Documented By: ANDRE Acetaminophen (Ofirmev) 1,000 mg in 100 mls @ 400 mls/hr IV Q6H [facility] Last Infusion: 01/15/23 04:59 Dose: 0 mls/hr Documented By: NIXON Promethazine HCl 12.5 mg/ (Sodium Chloride) 50.5 mls @ 202 mls/hr IV Q6H PRN PRN Reason: Nausea Last Admin: 01/15/23 08:17 Dose: 202 mls/hr Documented By: ANDRE Ibuprofen (Ibuprofen 800 Mg Tablet) 800 mg PO Q8H PRN PRN Reason: fever, pain Ondansetron HCl (Ondansetron Hcl 4 Mg/2 Ml Vial) 4 mg IVPUSH Q6H PRN PRN Reason: Nausea Last Admin: 01/15/23 03:21 Dose: 4 mg Documented By: NIXON Oxycodone HCl (Oxycodone Hcl Immed Release 5 Mg Tablet) 5 mg PO Q4H PRN PRN Reason: Pain, Moderate (Pain Scale 4-6 Oxycodone HCl (Oxycodone Hcl Immed Release 5 Mg Tablet) 10 mg PO Q4H PRN PRN Reason: Pain, Severe (Pain Scale 7-10) Last Admin: 01/13/23 17:59 Dose: 10 mg Documented By: SALIMA Pantoprazole Sodium (Pantoprazole Sodium 40 Mg/10 Ml Vial) 40 mg IVPUSH BID@0630,1630 [facility] Last Admin: 01/15/23 05:26 Dose: 40 mg Documented By: NIXON Simethicone (Simethicone 80 Mg Tab.Chew) 80 mg PO QIDWMHS PRN PRN Reason: gas pains Last Admin: 01/14/23 17:48 Dose: 80 mg Documented By: IDALMIS Sodium Chloride (0.9 % Sodium Chloride Flush 3 Ml Syringe) [facility] Last Admin: 01/15/23 08:27 Dose: 3 ml Documented By: ANDRE <Varsha Walters PA-C - Last Filed: 01/15/23 08:40> Labs CBC & Chem 7: 01/13/23 05:58 01/13/23 05:58 <Varsha Walters PA-C - Last Filed: 01/15/23 08:40> Procedures Date of Service Date of Service: 01/15/23 <AZALEA Colon Last Filed: 01/15/23 08:40> Progress Note: A&P Assessment and plan (1) S/P left colectomy: Status: Acute <Varsha Walters PA-C - Last Filed: 01/15/23 08:40> (2) Carcinoma of descending colon: Status: Acute <Varsha Walters PA-C - Last Filed: 01/15/23 08:40> Assessment and Plan: says he had emesis last night denies flatus still asking for IV pain meds abd soft, benign, no guarding not distended clinically looks well but CT ordered seen and examined independently at bedside - plan explained <Bay Hawkins MD - Last Filed: 01/15/23 10:16> Assessment and Plan: 32 year old male with colon CA of splenic flexure now POD #3 s/p MARTIR left colectomy, splenic flexure. Persistent nausea and vomiting despite antiemetics. No evidence of GI function. VSS. His abdomen is benign with appropriate post op tenderness, soft and nondistended. Will obtain CT scan abd/pelvis today, CBC/BMP. Strongly encouraged OOB and ambulation of halls at least 4x today, ambulation to bathroom/IS use. Cont pain control. Await GI function. <Varsha Walters PA-C - Last Filed: 01/15/23 08:40> Time Spent With Patient Time: Total time managing care of this patient today ____ minutes. <Varsha Walters PA-C - Last Filed: 01/15/23 08:40> Quality Stroke Does the patient have a stroke diagnosis?: No <Varsha Waletrs PA-C - Last Filed: 01/15/23 08:40> VTE Prior VTE?: No <Varsha Walters PA-C - Last Filed: 01/15/23 08:40> VTE Risk Level:: Surgical - moderate <Varsha Walters PA-C - Last Filed: 01/15/23 08:40> VTE Device Contraindication: N/A - Device Ordered <Varsha Walters PA-C - Last Filed: 01/15/23 08:40> VTE Drug Contraindication: N/A - Med Ordered <Varsha Walters PA-C - Last Filed: 01/15/23 08:40>
[2023-01-15] MEDS: iohexoL 350 MG/ML 100 ML INFUS..BTL IV (09:28)
[2023-01-15 10:09] LABS: MANUAL DIFF FLAG NO
[2023-01-15 10:14] LABS: Basophils Absolute Auto 0.1 X10*3/uL (0.0-0.2); Basophils Percent Auto 0.6 % (0-2); Eosinophils Absolute Auto 0.1 X10*3/uL (0.0-0.4); Eosinophils Percent Auto 0.7 % (0-4); Hematocrit 34.8 % (42.0-52.0); Hemoglobin 10.1 g/dl (14.0-18.0); Imm Gran Abs Auto 0.03 X10*3/uL (0.00-0.03); Imm Gran Pct Auto 0.3 % (0.0-0.4); Lymphocytes Absolute Auto 0.8 X10*3/uL (1.2-4.9); Lymphocytes Percent Auto 9.1 % (20-40); Mean Corpuscular Hemoglobin 19.6 pg (27.0-33.0); Mean Corpuscular Volume 67.4 fL (80.0-98.0); Monocytes Absolute Auto 0.6 X10*3/uL (0.1-1.2); Monocytes Percent Auto 6.9 % (2-11); Neutrophils Absolute Auto 7.3 x10*3/uL (2.0-8.3); Neutrophils Percent Auto 82.4 % (45-73); Platelet Count 510 X10*3/uL (160-400); Red Blood Count 5.16 X10*6/uL (4.60-5.80); Red Cell Distribution Width 16.5 % (11.0-16.0); White Blood Count 8.8 X10*3/uL (4.8-10.8)
[2023-01-15 10:35] LABS: Anion Gap 15 (12-20); Blood Urea Nitrogen 11 mg/dL (9-16); Calcium 8.8 mg/dL (8.4-10.2); Carbon Dioxide 24 mmol/L (22-29); Chloride 102 mmol/L (96-108); Creatinine Clr Calc Pharmacy 131.8; Estimated Glomerular Filt Rate > 60; Glucose Random 101 mg/dL (60-115); Potassium 4.2 mmol/L (3.3-5.1); Sodium 137 mmol/L (135-145)
[2023-01-15] MEDS: oxyCODONE HCl Immed Release 5 MG TABLET 10 MG PO (10:52)
--- NOTE | 2023-01-15 11:05 | MHC.CLN ---
F/U CLEAR LIQUID DIET. ENSURE CLEAR TID PROVIDES ADDITIONAL 720 KCALS, 24 G PROTEIN. NAUSEA AND VOMITING NOTED. SIGNIFICANT WEIGHT LOSS X 3 MONTHS WITH DX COLON CANCER. FOLLOW FOR INTAKE AND DIET ADVANCEMENT.
--- NOTE | 2023-01-15 14:35 | PM.EVENT ---
Event Note Date of Service: 01/15/23 Event Note: pt seen on afternoon rounds still with periodic dry heaving overall looks better abd remains soft and benign CT reviewed with Dr. Sadler - bhumika mild ileus keep on clear liquids encouraged pt to ambulate and get out of bed - accdg to staff, he barely gets out of bed pain mgt Time Spent With Patient Time: Total time managing care of this patient today ____ minutes.
--- NOTE | 2023-01-15 17:32 | PM.EVENT ---
Event Note Date of Service: 01/16/23 Event Note: States he vomited after ambulating just now abdomen remains soft he actually looks comfortable at this time I told him that because of this vomiting, he would keep him on ice chips for now his CAT scan does suggest ileus I will increase his IV rate as well encouraged to keep ambulating Time Spent With Patient Time: Total time managing care of this patient today ____ minutes.
[2023-01-15] MEDS: Famotidine 20 MG TABLET PO (21:38)
[2023-01-16] MEDS: HYDROmorphone HCl 0.5 MG/0.5 ML SYRINGE IVPUSH ×4 (02:06→15:58)
[2023-01-16] MEDS: Heparin Sodium,Porcine 5,000 UNIT/ML VIAL 5000 UNIT SUBCUT ×2 (02:06→09:18)
[2023-01-16] MEDS: ondansetron HCL 4 MG/2 ML VIAL IVPUSH ×3 (02:06→15:58)
[2023-01-16] MEDS: Simethicone 80 MG TAB.CHEW PO (03:36)
[2023-01-16 03:40] VITALS: BP 130/83; PULSE 90; RESP 18; TEMP 36.6; O2SAT 100
[2023-01-16] MEDS: Acetaminophen 1,000 MG/100 ML PIGGYBACK 400 MG IV ×4 (05:05→22:30)
[2023-01-16] MEDS: Pantoprazole Sodium 40 MG/10 ML VIAL IVPUSH ×2 (05:07→15:50)
--- NOTE | 2023-01-16 07:10 | PC.NURSE ---
Addendum entered by Elena Biswas RN 01/16/23 07:11: pt had bloody diarrhea this morning right before RN to RN report, I reported to morning nurse. will notify to the doctor. Original Note: pt had bloody diarrhea.
[2023-01-16 08:00] VITALS: BP 123/76; PULSE 86; RESP 17; TEMP 36.3; O2SAT 96
[2023-01-16] MEDS: Lactated Ringers 1,000 ML 80 ML IVCONT (09:08)
[2023-01-16] MEDS: Ascorbic Acid 500 MG TABLET PO ×2 (09:18→20:44)
[2023-01-16] MEDS: Famotidine 20 MG TABLET PO ×2 (09:18→20:45)
--- NOTE | 2023-01-16 10:10 | P.PNGS_ITS ---
Subjective Subjective Date of Service: 01/17/23 Interval history: says he had a much better night taking less IV pain meds still with nausea/dry heaving although better has been getting OOB more passed flatus and small BM Physical Exam Vital Signs: Vital Signs: Last Vital Signs Temp 97.4 F 01/16/23 08:00 Pulse 86 01/16/23 08:00 Resp 17 01/16/23 08:00 BP 123/76 01/16/23 08:00 Pulse Ox 96 01/16/23 08:00 O2 Del Method 01/16/23 08:00 O2 Flow Rate 2 01/16/23 03:40 BMI result Body Mass Index 39.0 Const: General: no acute distress Resp: Effort & Inspection: normal respiratory effort Cardio: Rate: regular rate GI: Palpation (GI): Soft to palpation, not firm, Tenderness to palpation present (GI) (along incisions, appropriate to postop) and no guarding Objective Data Active Medications Ascorbic Acid (Ascorbic Acid 500 Mg Tablet) 500 mg PO BID [facility] Last Admin: 01/16/23 09:18 Dose: 500 mg Documented By: IDALMIS Benzocaine (Throat Lozenge, Medicated Lozenge) 1 lozenge MUCOUS MEM Q2H PRN PRN Reason: Sore Throat Last Admin: 01/14/23 06:01 Dose: 1 lozenge Documented By: GEETA Famotidine (Famotidine 20 Mg Tablet) 20 mg PO BID [facility] Last Admin: 01/16/23 09:18 Dose: 20 mg Documented By: IDALMIS Ferrous Sulfate (Ferrous Sulfate 324 Mg Tablet.) 324 mg PO BID [facility] Last Admin: 01/16/23 09:24 Dose: Not Given Documented By: IDALMIS Non-Admin Reason: Patient Refused Heparin Sodium (Porcine) (Heparin Sodium,Porcine 5,000 Unit/Ml Vial) 5,000 unit SUBCUT Q8H [facility] Last Admin: 01/16/23 09:18 Dose: 5,000 unit Documented By: IDALMIS Hydromorphone HCl (Hydromorphone Hcl 0.5 Mg/0.5 Ml Syringe) 0.5 mg IVPUSH Q2H PRN; Protocol PRN Reason: Pain, Severe (Pain Scale 7-10) Last Admin: 01/16/23 09:03 Dose: 0.5 mg Documented By: IDALMIS Lactated Ringer's (Lr) 1,000 mls @ 100 mls/hr IVCONT .Q10H [facility] Last Admin: 01/16/23 09:08 Dose: 80 mls/hr Documented By: IDALMIS Acetaminophen (Ofirmev) 1,000 mg in 100 mls @ 400 mls/hr IV Q6H [facility] Last Infusion: 01/16/23 05:24 Dose: 0 mls/hr Documented By: NIXON Promethazine HCl 12.5 mg/ (Sodium Chloride) 50.5 mls @ 202 mls/hr IV Q6H PRN PRN Reason: Nausea Last Infusion: 01/15/23 22:20 Dose: 0 mls/hr Documented By: NIXON Ibuprofen (Ibuprofen 800 Mg Tablet) 800 mg PO Q8H PRN PRN Reason: fever, pain Ondansetron HCl (Ondansetron Hcl 4 Mg/2 Ml Vial) 4 mg IVPUSH Q6H PRN PRN Reason: Nausea Last Admin: 01/16/23 09:03 Dose: 4 mg Documented By: IDALMIS Oxycodone HCl (Oxycodone Hcl Immed Release 5 Mg Tablet) 5 mg PO Q4H PRN PRN Reason: Pain, Moderate (Pain Scale 4-6 Oxycodone HCl (Oxycodone Hcl Immed Release 5 Mg Tablet) 10 mg PO Q4H PRN PRN Reason: Pain, Severe (Pain Scale 7-10) Last Admin: 01/15/23 10:52 Dose: 10 mg Documented By: DEREK Pantoprazole Sodium (Pantoprazole Sodium 40 Mg/10 Ml Vial) 40 mg IVPUSH BID@0630,1630 [facility] Last Admin: 01/16/23 05:07 Dose: 40 mg Documented By: NIXON Simethicone (Simethicone 80 Mg Tab.Chew) 80 mg PO QIDWMHS PRN PRN Reason: gas pains Last Admin: 01/16/23 03:36 Dose: 80 mg Documented By: NIXON Sodium Chloride (0.9 % Sodium Chloride Flush 3 Ml Syringe) 3 ml IVFLUSH QSHIFT [facility] Last Admin: 01/16/23 09:08 Dose: Not Given Documented By: IDALMIS Non-Admin Reason: IV Running Labs 01/15/23 10:04 01/15/23 10:04 Labs: Laboratory Results - last 24 hr 01/15/23 01/15/23 10:04 10:04 MCV 67.4 L MCH 19.6 L MCHC 29.0 L RDW 16.5 H Plt Count 510 H MPV 11.0 Immature Gran % (Auto) 0.3 Neut % (Auto) 82.4 H Lymph % (Auto) 9.1 L [place] % (Auto) 6.9 Eos % (Auto) 0.7 Baso % (Auto) 0.6 Lymph # (Auto) 0.8 L [place] # (Auto) 0.6 Eos # (Auto) 0.1 Baso # (Auto) 0.1 Abs Immat Gran (auto) 0.03 Absolute Neuts (auto) 7.3 Absolute Nucleated RBC 0.000 Nucleated RBC % (auto) 0.0 Anion Gap 15 Estim Creat Clear Calc 131.8 Estimated GFR > 60 Random Glucose 101 Calcium 8.8 Procedures Date of Service Date of Service: 01/17/23 Progress Note: A&P Assessment and plan (1) S/P left colectomy: Status: Acute Assessment and Plan: improving slowly has had PONV, CT done yesterday - likely ileus, no evidence of bowel obstruction he does say he has reflux at home on PPI stable VS exam benign clinically doing well overall will keep on sips for now in view of nausea he has passed flatus and small BM Time Spent With Patient Time: Total time managing care of this patient today ____ minutes. Quality Stroke Does the patient have a stroke diagnosis?: No VTE Prior VTE?: No VTE Risk Level:: Surgical - moderate VTE Device Contraindication: N/A - Device Ordered VTE Drug Contraindication: N/A - Med Ordered
--- NOTE | 2023-01-16 15:29 | PM.EVENT ---
Event Note Date of Service: 01/16/23 Event Note: seen on afternoon rounds c/o reflux - says he has hx of this no actual nausea/vomitting pain much improved - does not take as much pain meds anymore ambulating more on Prilosec and Famotidine ok to have sips of clears abd soft Time Spent With Patient Time: Total time managing care of this patient today ____ minutes.
[2023-01-16 19:58] VITALS: BP 120/67; PULSE 78; RESP 16; TEMP 36.3; O2SAT 97
[2023-01-16] MEDS: 0.9 % Sodium Chloride Flush 3 ML SYRINGE IVFLUSH (20:45)
[2023-01-16 23:33] VITALS: BP 127/81; PULSE 79; RESP 18; TEMP 36.4; O2SAT 98
[2023-01-17 03:20] VITALS: BP 131/79; PULSE 65; RESP 17; TEMP 36.4; O2SAT 97
[2023-01-17] MEDS: Heparin Sodium,Porcine 5,000 UNIT/ML VIAL 5000 UNIT SUBCUT ×3 (04:08→16:28)
[2023-01-17] MEDS: Acetaminophen 1,000 MG/100 ML PIGGYBACK 400 MG IV ×3 (04:09→16:28)
[2023-01-17] MEDS: HYDROmorphone HCl 0.5 MG/0.5 ML SYRINGE IVPUSH (04:09)
[2023-01-17] MEDS: ondansetron HCL 4 MG/2 ML VIAL IVPUSH ×3 (04:09→23:57)
--- NOTE | 2023-01-17 05:43 | PC.NURSE ---
pt had nose bleeding with chunk of blood clots. he pinched the nose afew minutes and lower the head, I provide moisturizing the nose and clean. educated him how to using the salt water to clean the nose through the throat. pt was satisfy with salt water cleaning technic. feels clean and good . after that he washed himself in the sink. feels better .
[2023-01-17] MEDS: Pantoprazole Sodium 40 MG/10 ML VIAL IVPUSH (06:02)
[2023-01-17 08:00] VITALS: BP 119/66; PULSE 78; RESP 17; TEMP 36.6; O2SAT 95
[2023-01-17] MEDS: Ascorbic Acid 500 MG TABLET PO ×2 (08:50→20:44)
[2023-01-17] MEDS: Famotidine 20 MG TABLET PO ×2 (08:50→20:44)
[2023-01-17] MEDS: 0.9 % Sodium Chloride Flush 3 ML SYRINGE IVFLUSH (08:51)
--- NOTE | 2023-01-17 11:13 | PM.PNGS ---
Subjective Subjective Date of Service: 01/18/23 Interval history: feels better reflux symptoms seem improved passing flatus and BMs pain much improved no vomitting says he has been ambulating more Physical Exam Vital Signs: Vital Signs: Last Vital Signs Temp 97.9 F 01/17/23 08:00 Pulse 78 01/17/23 08:00 Resp 17 01/17/23 08:00 BP 119/66 01/17/23 08:00 Pulse Ox 95 01/17/23 08:00 O2 Del Method 01/17/23 08:00 O2 Flow Rate 2 01/17/23 03:20 BMI result Body Mass Index 39.0 Const: Other: anxious looking as baseline General: comfortable and no acute distress Resp: Effort & Inspection: normal respiratory effort Cardio: Rate: regular rate GI: Other: incision clean and dry Palpation (GI): Soft to palpation, not firm, Tenderness to palpation present (GI) and no guarding Objective Data Active Medications Ascorbic Acid (Ascorbic Acid 500 Mg Tablet) 500 mg PO BID [facility] Last Admin: 01/17/23 08:50 Dose: 500 mg Documented By: MICHAEL Benzocaine (Throat Lozenge, Medicated Lozenge) 1 lozenge MUCOUS MEM Q2H PRN PRN Reason: Sore Throat Last Admin: 01/14/23 06:01 Dose: 1 lozenge Documented By: GEETA Famotidine (Famotidine 20 Mg Tablet) 20 mg PO BID [facility] Last Admin: 01/17/23 08:50 Dose: 20 mg Documented By: MICHAEL Ferrous Sulfate (Ferrous Sulfate 324 Mg Tablet.) 324 mg PO BID [facility] Last Admin: 01/17/23 08:52 Dose: Not Given Documented By: MICHAEL Non-Admin Reason: Patient Refused Heparin Sodium (Porcine) (Heparin Sodium,Porcine 5,000 Unit/Ml Vial) 5,000 unit SUBCUT Q8H [facility] Last Admin: 01/17/23 08:50 Dose: 5,000 unit Documented By: MICHAEL Hydromorphone HCl (Hydromorphone Hcl 0.5 Mg/0.5 Ml Syringe) 0.5 mg IVPUSH Q2H PRN; Protocol PRN Reason: Pain, Severe (Pain Scale 7-10) Last Admin: 01/17/23 04:09 Dose: 0.5 mg Documented By: NIXON Acetaminophen (Ofirmev) 1,000 mg in 100 mls @ 400 mls/hr IV Q6H [facility] Last Infusion: 01/17/23 10:38 Dose: 0 mls/hr Documented By: MICHAEL Promethazine HCl 12.5 mg/ (Sodium Chloride) 50.5 mls @ 202 mls/hr IV Q6H PRN PRN Reason: Nausea Last Infusion: 01/16/23 14:10 Dose: 0 mls/hr Documented By: IDALMIS Ibuprofen (Ibuprofen 800 Mg Tablet) 800 mg PO Q8H PRN PRN Reason: fever, pain Ondansetron HCl (Ondansetron Hcl 4 Mg/2 Ml Vial) 4 mg IVPUSH Q6H PRN PRN Reason: Nausea Last Admin: 01/17/23 04:09 Dose: 4 mg Documented By: NIXON Oxycodone HCl (Oxycodone Hcl Immed Release 5 Mg Tablet) 5 mg PO Q4H PRN PRN Reason: Pain, Moderate (Pain Scale 4-6 Oxycodone HCl (Oxycodone Hcl Immed Release 5 Mg Tablet) 10 mg PO Q4H PRN PRN Reason: Pain, Severe (Pain Scale 7-10) Last Admin: 01/15/23 10:52 Dose: 10 mg Documented By: DEREK Pantoprazole Sodium (Pantoprazole Sodium 40 Mg/10 Ml Vial) 40 mg IVPUSH BID@0630,1630 [facility] Last Admin: 01/17/23 06:02 Dose: 40 mg Documented By: NIXON Simethicone (Simethicone 80 Mg Tab.Chew) 80 mg PO QIDWMHS PRN PRN Reason: gas pains Last Admin: 01/16/23 03:36 Dose: 80 mg Documented By: NIXON Sodium Chloride (0.9 % Sodium Chloride Flush 3 Ml Sy[facility]) [facility] Last Admin: 01/17/23 08:51 Dose: 3 ml Documented By: MICHAEL Labs 01/15/23 10:04 01/15/23 10:04 Procedures Date of Service Date of Service: 01/18/23 Progress Note: A&P Assessment and plan (1) S/P left colectomy: Status: Acute Assessment and Plan: reflux symptoms better says he is ready to restart diet clear liquids today, advance as tolerated looks well, always anxious however abd soft and benign await path Time Spent With Patient Time: Total time managing care of this patient today ____ minutes. Quality Stroke Does the patient have a stroke diagnosis?: No VTE Prior VTE?: No VTE Risk Level:: Surgical - moderate VTE Device Contraindication: N/A - Device Ordered VTE Drug Contraindication: N/A - Med Ordered
[2023-01-17] MEDS: Simethicone 80 MG TAB.CHEW PO (12:55)
[2023-01-17] MEDS: Pantoprazole Sodium 40 MG/10 ML VIAL 20 MG IVPUSH (14:46)
[2023-01-17] MEDS: Lactated Ringers 1,000 ML 80 ML IVCONT (14:47)
[2023-01-17 15:41] VITALS: BP 116/58; PULSE 75; RESP 14; TEMP 36.7; O2SAT 94
[2023-01-17 16:00] VITALS: BP 116/58; PULSE 75; RESP 14; TEMP 36.7; O2SAT 94
[2023-01-17 19:13] VITALS: BP 141/66; PULSE 92; RESP 18; TEMP 36.4; O2SAT 99
[2023-01-17 23:52] VITALS: BP 131/78; PULSE 64; RESP 18; TEMP 36.6; O2SAT 97
[2023-01-18] MEDS: Heparin Sodium,Porcine 5,000 UNIT/ML VIAL 5000 UNIT SUBCUT ×3 (00:01→15:54)
[2023-01-18 03:19] VITALS: BP 133/74; PULSE 88; RESP 18; TEMP 36.7; O2SAT 97
[2023-01-18] MEDS: ondansetron HCL 4 MG/2 ML VIAL IVPUSH ×2 (05:48→12:33)
[2023-01-18] MEDS: Pantoprazole Sodium 40 MG/10 ML VIAL 20 MG IVPUSH ×2 (05:50→15:54)
[2023-01-18] MEDS: Lactated Ringers 1,000 ML 80 ML IVCONT (06:23)
--- NOTE | 2023-01-18 07:45 | PM.PNGS ---
Subjective Subjective Date of Service: 01/19/23 Interval history: contineus to feel better tolerating liquids admits to still having reflux and nausea but improved good flatus and BMs - loose Physical Exam Vital Signs: Vital Signs: Last Vital Signs Temp 98.0 F 01/18/23 03:19 Pulse 88 01/18/23 03:19 Resp 18 01/18/23 03:19 BP 133/74 01/18/23 03:19 Pulse Ox 97 01/18/23 03:19 O2 Del Method 01/18/23 03:19 O2 Flow Rate 2 01/17/23 03:20 BMI result Body Mass Index 39.0 Const: General: comfortable and no acute distress Resp: Effort & Inspection: normal respiratory effort Cardio: Rate: regular rate GI: Other: incision clean, dry Palpation (GI): Soft to palpation, not firm and no guarding Objective Data Active Medications Ascorbic Acid (Ascorbic Acid 500 Mg Tablet) 500 mg PO BID COUNTS [facility]CLUDE 234 BEDS AT [facility] Last Admin: 01/17/23 20:44 Dose: 500 mg Documented By: DARIEN Benzocaine (Throat Lozenge, Medicated Lozenge) 1 lozenge MUCOUS MEM Q2H PRN PRN Reason: Sore Throat Last Admin: 01/14/23 06:01 Dose: 1 lozenge Documented By: GEETA Famotidine (Famotidine 20 Mg Tablet) 20 mg PO BID COUNTS INCLUDE 234 BEDS AT THE [facility] Last Admin: 01/17/23 20:44 Dose: 20 mg Documented By: DARIEN Ferrous Sulfate (Ferrous Sulfate 324 Mg Tablet.Dr) 324 mg PO BID COUNTS INCLUDE 234 BEDS AT THE [facility] Last Admin: 01/17/23 20:47 Dose: Not Given Documented By: DARIEN Non-Admin Reason: Patient Refused Heparin Sodium (Porcine) (Heparin Sodium,Porcine 5,000 Unit/Ml Vial) 5,000 unit SUBCUT Q8H COUNTS INCLUDE 234 BEDS AT THE [facility] Last Admin: 01/18/23 00:01 Dose: 5,000 unit Documented By: JIM Hydromorphone HCl (Hydromorphone Hcl 0.5 Mg/0.5 Ml Syringe) 0.5 mg IVPUSH Q2H PRN; Protocol PRN Reason: Pain, Severe (Pain Scale 7-10) Last Admin: 01/17/23 04:09 Dose: 0.5 mg Documented By: NIXON Promethazine HCl 12.5 mg/ (Sodium Chloride) 50.5 mls @ 202 mls/hr IV Q6H PRN PRN Reason: Nausea Last Infusion: 01/16/23 14:10 Dose: 0 mls/hr Documented By: IDALMIS Lactated Ringer's (Lr) 1,000 mls @ 80 mls/hr IVCONT .[id number] COUNTS INCLUDE 234 BEDS AT THE [facility] Last Admin: 01/18/23 06:23 Dose: 80 mls/hr Documented By: JIM Ibuprofen (Ibuprofen 800 Mg Tablet) 800 mg PO Q8H PRN PRN Reason: fever, pain Ondansetron HCl (Ondansetron Hcl 4 Mg/2 Ml Vial) 4 mg IVPUSH Q6H PRN PRN Reason: Nausea Last Admin: 01/18/23 05:48 Dose: 4 mg Documented By: JIM Pantoprazole Sodium (Pantoprazole Sodium 40 Mg/10 Ml Vial) 20 mg IVPUSH BID@0630,1630 COUNTS INCLUDE 234 BEDS AT THE [facility] Last Admin: 01/18/23 05:50 Dose: 20 mg Documented By: JIM Simethicone (Simethicone 80 Mg Tab.Chew) 80 mg PO QIDWMHS PRN PRN Reason: gas pains Last Admin: 01/17/23 12:55 Dose: 80 mg Documented By: MICHAEL Sodium Chloride (0.9 % Sodium Chloride Flush 3 Ml Syringe) 3 ml IVFLUSH QSHIFT COUNTS INCLUDE 234 BEDS AT THE [facility] Last Admin: 01/18/23 07:31 Dose: Not Given Documented By: COTEMA Non-Admin Reason: IV Running Labs 01/15/23 10:04 01/15/23 10:04 Procedures Date of Service Date of Service: 01/18/23 Progress Note: A&P Assessment and plan (1) S/P left colectomy: Status: Acute Assessment and Plan: looks well diet as tolerated ambulate doing well possible dc home tomorrow path pending Time Spent With Patient Time: Total time managing care of this patient today ____ minutes. Quality Stroke Does the patient have a stroke diagnosis?: No VTE Prior VTE?: No VTE Risk Level:: Surgical - moderate VTE Device Contraindication: N/A - Device Ordered VTE Drug Contraindication: N/A - Med Ordered
[2023-01-18 07:51] VITALS: BP 125/65; PULSE 65; RESP 18; TEMP 36.6; O2SAT 95
[2023-01-18 07:58] VITALS: BP 172/78; PULSE 72; RESP 18; TEMP 36.5; O2SAT 94
[2023-01-18] MEDS: Famotidine 20 MG TABLET PO ×2 (08:38→19:32)
[2023-01-18] MEDS: Ascorbic Acid 500 MG TABLET PO ×2 (08:38→19:32)
[2023-01-18] MEDS: Simethicone 80 MG TAB.CHEW PO (08:38)
--- NOTE | 2023-01-18 10:57 | MHC.CLN ---
F/U DIET ADVANCED TO REGULAR, BLAND TODAY. DIARRHEA NOTED 01/16. FOLLOW FOR DIET TOLERANCE AND INTAKE.
[2023-01-18] MEDS: 0.9 % Sodium Chloride Flush 3 ML SYRINGE IVFLUSH ×2 (15:54→19:33)
[2023-01-18 15:58] VITALS: BP 122/65; PULSE 76; RESP 16; TEMP 36.9; O2SAT 95
[2023-01-18 19:32] VITALS: BP 121/65; PULSE 65; RESP 22; TEMP 36.9; O2SAT 96
[2023-01-18] MEDS: Ferrous Sulfate 324 MG TABLET.DR PO (19:32)
[2023-01-19] MEDS: ondansetron HCL 4 MG/2 ML VIAL IVPUSH (00:54)
[2023-01-19] MEDS: Heparin Sodium,Porcine 5,000 UNIT/ML VIAL 5000 UNIT SUBCUT (01:00)
[2023-01-19] MEDS: Pantoprazole Sodium 40 MG/10 ML VIAL 20 MG IVPUSH (06:10)
[2023-01-19 07:29] VITALS: BP 128/78; PULSE 61; RESP 16; TEMP 36.8; O2SAT 98
[2023-01-19] MEDS: Ascorbic Acid 500 MG TABLET PO (08:55)
[2023-01-19] MEDS: Famotidine 20 MG TABLET PO (08:55)
[2023-01-19] MEDS: Simethicone 80 MG TAB.CHEW PO (08:55)
--- NOTE | 2023-01-19 09:34 | P.PNGS_ITS ---
Subjective Subjective Date of Service: 01/19/23 <Varsha Walters PA-C - Last Filed: 01/19/23 09:39> 01/19/23 <Bay Hawkins MD - Last Filed: 01/19/23 10:55> Interval history: Feeling well this morning. Tolerating solid food. Nausea overall improved. Has not had much abd pain at all. Passing flatus and multiple loose stools. C/o hardness at right AC joint where IV was. Feels ready for discharge. <Varsha Walters PA-C - Last Filed: 01/19/23 09:39> Physical Exam Vital Signs: Vital Signs: Last Vital Signs Temp 98.2 F 01/19/23 07:29 Pulse 61 01/19/23 07:29 Resp 16 01/19/23 07:29 BP 128/78 01/19/23 07:29 Pulse Ox 98 01/19/23 07:29 O2 Del Method 01/19/23 07:29 O2 Flow Rate 2 01/17/23 03:20 BMI result Body Mass Index 39.0 <Varsha Walters PA-C - Last Filed: 01/19/23 09:39> Const: General: comfortable, no acute distress and alert <Varsha Walters PA-C - Last Filed: 01/19/23 09:39> Orientation/consciousness: patient oriented x3 <Varsha Walters PA-C - Last Filed: 01/19/23 09:39> Resp: Effort & Inspection: normal respiratory effort <Varsha Walters PA-C - Last Filed: 01/19/23 09:39> GI: Inspection: No distended and Yes incision (clean) <Varsha Walters PA-C - Last Filed: 01/19/23 09:39> Palpation (GI): Soft to palpation, nontender, no guarding and not rigid <Varsha Walters PA-C - Last Filed: 01/19/23 09:39> Skin: General skin exam: no rashes or lesions noted <Varsha Walters PA-C - Last Filed: 01/19/23 09:39> Neuro: General: patient oriented x3 and moves all extremities <AZALEA Colon Last Filed: 01/19/23 09:39> Extrem: Other: small amount of induration at right AC joint, no erythema, no fluctuance <Varsha Walters PA-C - Last Filed: 01/19/23 09:39> Objective Data Active Medications Ascorbic Acid (Ascorbic Acid 500 Mg Tablet) 500 mg PO BID [facility] Last Admin: 01/19/23 08:55 Dose: 500 mg Documented By: TAMMY Benzocaine (Throat Lozenge, Medicated Lozenge) 1 lozenge MUCOUS MEM Q2H PRN PRN Reason: Sore Throat Last Admin: 01/14/23 06:01 Dose: 1 lozenge Documented By: GEETA Famotidine (Famotidine 20 Mg Tablet) 20 mg PO BID [facility] Last Admin: 01/19/23 08:55 Dose: 20 mg Documented By: TAMMY Ferrous Sulfate (Ferrous Sulfate 324 Mg Tablet.Dr) 324 mg PO BID [facility] Last Admin: 01/19/23 08:57 Dose: Not Given Documented By: TAMMY Non-Admin Reason: Patient Refused Heparin Sodium (Porcine) (Heparin Sodium,Porcine 5,000 Unit/Ml Vial) 5,000 unit SUBCUT Q8H [facility] Last Admin: 01/19/23 08:38 Dose: Not Given Documented By: TAMMY Non-Admin Reason: Patient Refused Hydromorphone HCl (Hydromorphone Hcl 0.5 Mg/0.5 Ml Syringe) 0.5 mg IVPUSH Q2H PRN; Protocol PRN Reason: Pain, Severe (Pain Scale 7-10) Last Admin: 01/17/23 04:09 Dose: 0.5 mg Documented By: NIXON Promethazine HCl 12.5 mg/ (Sodium Chloride) 50.5 mls @ 202 mls/hr IV Q6H PRN PRN Reason: Nausea Last Infusion: 01/18/23 16:39 Dose: 0 mls/hr Documented By: COTEMA Ibuprofen (Ibuprofen 800 Mg Tablet) 800 mg PO Q8H PRN PRN Reason: fever, pain Lorazepam (Lorazepam 1 Mg Tablet) 2 mg PO TID PRN PRN Reason: anxiety/restlessness Ondansetron HCl (Ondansetron Hcl 4 Mg/2 Ml Vial) 4 mg IVPUSH Q6H PRN PRN Reason: Nausea Last Admin: 01/19/23 00:54 Dose: 4 mg Documented By: PENELOPE Pantoprazole Sodium (Pantoprazole Sodium 40 Mg/10 Ml Vial) 20 mg IVPUSH BID@0630,1630 [facility] Last Admin: 01/19/23 06:10 Dose: 20 mg Documented By: PENELOPE Simethicone (Simethicone 80 Mg Tab.Chew) 80 mg PO QIDWMHS PRN PRN Reason: gas pains Last Admin: 01/19/23 08:55 Dose: 80 mg Documented By: CALLY-SOFFA Sodium Chloride (0.9 % Sodium Chloride Flush 3 Ml Syringe) 3 ml IVFLUSH QSHIFT [facility] Last Admin: 01/19/23 07:22 Dose: Not Given Documented By: CALLY-SOFDIANNA Non-Admin Reason: See Note <Varsha Walters PA-C - Last Filed: 01/19/23 09:39> Labs CBC & Chem 7: 01/15/23 10:04 01/15/23 10:04 <Varsha Walters PA-C - Last Filed: 01/19/23 09:39> Procedures Date of Service Date of Service: 01/19/23 <Varsha Walters PA-C - Last Filed: 01/19/23 09:39> Progress Note: A&P Assessment and plan (1) S/P left colectomy: Status: Acute <Varsha Walters PA-C - Last Filed: 01/19/23 09:39> Assessment and Plan: tolerating diet has BMs and flatus frequent BMs, loose check stool for Cdiff looks well abd soft ok to dc home - he says he is ready dc instructions given ffup path seen and examined independently <Bay Hawkins MD - Last Filed: 01/19/23 10:55> (2) Carcinoma of descending colon: Status: Acute <Varsha Walters PA-C - Last Filed: 01/19/23 09:39> Assessment and Plan: 32 year old male with colon CA of splenic flexure now POD #7 s/p MARTIR left colectomy, splenic flexure. Improved and doing well. Tolerating diet, good GI function. VSS. Abd is benign with clean incision. Has induration at old IV site consistent with phlebitis- encouraged ice packs and motrin. He is overall stable and ready for discharge to home today. All questions answered. Patient and are comfortable with plan. F/u in office for staple removal. Path remains pending. <MOLLY Colon - Last Filed: 01/19/23 09:39> Time Spent With Patient Time: Total time managing care of this patient today ____ minutes. <Varsha Walters PA-C - Last Filed: 01/19/23 09:39> Quality Stroke Does the patient have a stroke diagnosis?: No <Varsha Walters PA-C - Last Filed: 01/19/23 09:39> VTE Prior VTE?: No <Varsha Walters PA-C - Last Filed: 01/19/23 09:39> VTE Risk Level:: Surgical - moderate <Varsha Walters PA-C - Last Filed: 01/19/23 09:39> VTE Device Contraindication: N/A - Device Ordered <Varsha Walters PA-C - Last Filed: 01/19/23 09:39> VTE Drug Contraindication: N/A - Med Ordered <Varsha Walters PA-C - Last Filed: 01/19/23 09:39>
--- NOTE | 2023-01-19 09:45 | MHC.CM.PN ---
Patient has been medically cleared for dc to home today, self care.
--- NOTE | 2023-01-20 14:14 | P.DS_ITS ---
DS: Providers Provider Date of Service: 01/19/23 Date of admission: 01/12/23 08:21 Date of discharge: 01/19/23 Primary care physician: HAILEY Bhagat Attending physician on admission: Bay Hawkins Attending physician on discharge: Bay Hawkins DS: Diagnosis Discharge Diagnosis (1) S/P left colectomy: Status: Acute DS: Summary Hospital Course Hospital Course: HPI AT ADMISSION: The patient is a 32-year-old for a CT scan for abdominal pain 3 weeks ago showing colon mass in the proximal descending colon near the splenic flexure. His colonoscopy confirm this as well with biopsies showing adenocarcinoma. He had suggestion of microsatellite instability, and had been sent for genetic testing which was still pending. It was explained to him that if he tested positive for HNPCC based on final genetic testing results the best option would be a subtotal colectomy in view of the risk of metachronous disease in the colon. He understood this but wanted to proceed and did not want a subtotal colectomy at this time. HOSPITAL COURSE: On 01/12/23, a hand assisted laparoscopic left colon resection to include the splenic flexure was performed by Dr. Hawkins without complication. The cancer was at the splenic flexure to the proximal descending colon, bulky and markedly adherent to the spleen with involvement and foreshortening of the mesentery. He tolerated the procedure well. He was admitted following for observation. He had an uncomplicated but slow recovery course. His harrington was removed on POD #1. He had mild baseline nausea at home however this was more increased post o peratively for a few days associated with dry heaving and necessitated two IV antiemetics. CT scan was therefore obtained which showed mild ileus. His activity was increased. He was kept on clears until the nausea improved and he began passing flatus. He was then advanced to a low residue diet. He began to move his bowels. His pain became better controlled with PO analgesics and then was requiring no analgesics. He was tolerating a solid diet with good GI function. He had a benign abd exam with appropriate post op tenderness and clean incision. He felt ready for discharge to home. He was discharged to home on 01/19/23 in stable condition. Status at Discharge Functional status at discharge: independent ambulation Overall status at discharge: patient is progressing back to baseline Time Spent with Patient Time attestation: Total time managing care of this patient today ____ minutes. Discharge coordination time: Greater than 30 minutes Quality: Safe Use of Opioids Does Pt have an Active Cancer Diagnosis on the Problem List?: Yes Opioid Measure Date for [facility] Report: 12/22/22 Opioid Measure Time for [facility] Report: 14:13 Quality: Stroke Does the patient have a stroke diagnosis?: No Physical Exam Vital Signs: Vital Signs: Last Vital Signs Temp 98.2 F 01/19/23 07:29 Pulse 61 01/19/23 07:29 Resp 16 01/19/23 07:29 BP 128/78 01/19/23 07:29 Pulse Ox 98 01/19/23 07:29 O2 Del Method 01/19/23 07:29 O2 Flow Rate 2 01/17/23 03:20 BMI result Body Mass Index 39.0 Const: General: comfortable and no acute distress Orientation/consciousness: patient oriented x3 Resp: Effort & Inspection: normal respiratory effort GI: Inspection: No distended and Yes incision (clean, valentín intact) Palpation (GI): Soft to palpation, nontender, no guarding and not rigid Percussion: Yes normal to percussion Skin: General skin exam: no rashes or lesions noted Neuro: General: patient oriented x3 DS: Data Data Completed and Pending Completed studies during hospitalization [Text1]: Procedures Excision of Left Large Intestine, Open Approach (01/12/23) Pending studies at discharge: Pending at discharge 01/12/23 12:39 Surgical [PTH] Stat Discharge Plan Discharge Anticipated Discharge Date/Time: 01/19/23 10:03 Patient Disposition: Home, Self-Care Discharge Diagnosis: s/p MARTIR left colectomy Referrals: Bay Hawkins MD [Physician] - 2 Weeks Autumn Miller FNP [Primary Care Provider] - 1 Week Discharge Medications: New oxycodone 5 mg tablet 5 mg PO Q4H PRN (Reason: pain (scale score 7-10)) Qty: 20 0RF Rx Instructions: Partial Fill upon patient request. Continued ferrous sulfate [Iron (ferrous sulfate)] 325 mg (65 mg iron) Tablet 325 mg PO BID Qty: 60 3RF ascorbic acid (vitamin C) [Vitamin C] 500 mg Tablet 500 mg PO BID Qty: 60 3RF famotidine 20 mg tablet 20 mg PO BEDTIME Qty: 30 0RF Discharge Orders: Discharge Order (Routine); Ordered 01/19/23 Ordered By: Varsha Walters Diet: low residue Activity on Discharge: No heavy lifting Stand Alone Forms: Patient Portal Discharge page Activity Restrictions/Additional Instructions: If the incision area is tender, you may apply an ice pack for short intervals (No more than 20 minutes on, followed by at least 20 minutes off). Do not apply heat. Do not use creams, lotions, or topical antibiotics unless instructed to do so by your surgeon. These can cause infection or allergic reaction. Ok to shower. You have valentín closing your incision and these will be removed approximately 10-14 days after surgery. NO HEAVY LIFTING (>10lbs) or strenuous activity. Follow up in office. ([phone]) Call Your Doctor If: -Your temperature exceeds 101.5? F -You experience excessive pain or swelling -You have an unexpected reaction to medication -You have excessive bleeding -You experience continued vomiting/nausea -Your incision begins to separate -Your incision shows signs of infection such as increased redness, swelling, excessive pain, drainage (light blood or clear fluid is normal) or he at Care Plan Goals: Return to baseline health and gradual return to activity following recovery period. Health Concerns: colon CA, splenic flexure Plan of Treatment: s/p MARTIR left colectomy f/u in office in 2 weeks await pathology Assessment: Doing well post op Discharge Date/Time: 01/19/23 14:12
== END 2023-01-19 14:12 | disposition home or self-care (01) | DRG 231 ==
LOC: HO.SSSA 08:29 → HO.S3 17:32
PROVIDERS: Anesthesiology; Physician Assistant Surgical; Admitting Provider Surgery; PCP Registered Nurse; Visit Provider Surgery
PROC: 0DTE0ZZ Resection of Large Intestine, Open Approach (ICD-10-PCS; principal; 2023-01-12 09:10)
DX: C18.6 Malignant neoplasm of descending colon (principal); K56.7 Ileus, unspecified; J45.909 Unspecified asthma, uncomplicated; K21.9 Gastro-esophageal reflux disease without esophagitis; Z20.822 Contact with and (suspected) exposure to COVID-19; Z79.899 Other long term (current) drug therapy
CPT/HCPCS: 36415; 74177; 80048; 85025; 86850; 86900; 86901; 87635; 88309; 88329; C1758; J0131; J1100; J1170; J1643; J2250; J2270; J2405; J2550; J3010; Q9967

== ENCOUNTER → 2023-01-27 16:01 | Outpatient (BNVA) | payer MEDICAID, SELFPAY | PROVIDERS: PCP Registered Nurse; Visit Provider Surgery | DX: Z13.89 Encounter for screening for other disorder (principal) ==

== ENCOUNTER → 2023-02-18 15:00 | Outpatient (BNVA) | payer MEDICAID, SELFPAY | PROVIDERS: PCP Registered Nurse; Visit Provider Surgery ==

== ENCOUNTER → 2023-03-18 14:23 | Outpatient (BNVA) | payer MEDICAID, SELFPAY | PROVIDERS: PCP Registered Nurse; Visit Provider Surgery ==

== ENCOUNTER 2023-06-17 14:27 | Outpatient (AMB) | payer MEDICAID, SELFPAY ==
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
[2023-06-17 14:36] VITALS: BP 134/63; PULSE 72; BMI 37.9
== END 2023-06-17 14:48 | disposition home or self-care (01) ==
LOC: HO.HGS 14:27
PROVIDERS: PCP Registered Nurse; Visit Provider Surgery
DX: Z90.49 Acquired absence of other specified parts of digestive tract (principal); E66.01 Morbid (severe) obesity due to excess calories
CPT/HCPCS: 99213

== ENCOUNTER → 2023-06-17 14:27 | Outpatient (BNVA) | payer MEDICAID, SELFPAY | PROVIDERS: PCP Registered Nurse; Visit Provider Surgery | DX: E66.01 Morbid (severe) obesity due to excess calories (principal); Z90.49 Acquired absence of other specified parts of digestive tract; Z68.37 Body mass index [BMI] 37.0-37.9, adult | CPT/HCPCS: 99212 ==

== ENCOUNTER 2023-09-22 12:14 | Outpatient (REF) | payer MEDICAID, SELFPAY ==
--- NOTE | ~2023-09-22 | XR_ITS ---
EXAMINATION: XR SHOULDER, RIGHT CLINICAL INFORMATION: Acute pain status-post injury. COMPARISON: None available. TECHNIQUE: AP external rotation, Grashey, scapular Y, and axillary views of the right shoulder. FINDINGS: Bony mineralization is normal. The glenohumeral joint is intact. There is 7 mm of inferior displacement of the acromion process relative to the distal clavicle. The coracoclavicular interval is normal. No fracture is seen. No soft tissue calcifications or foreign body. No right pneumothorax is seen. XR/XR shoulder RT min 2V IMPRESSION: Findings are consistent with a mild right acromioclavicular separation injury. No fracture is seen.
== END 2023-09-22 12:15 | disposition home or self-care (01) ==
LOC: HO.HHCX 12:14
PROVIDERS: Visit Provider Registered Nurse
DX: M25.511 Pain in right shoulder (principal)
CPT/HCPCS: 73030

== ENCOUNTER 2023-12-06 07:44 | Day surgery (SDC) | payer MEDICAID, SELFPAY ==
[2023-12-02 14:54] VITALS: BMI 36.6
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
[2023-12-06 07:57] VITALS: BP 125/70; PULSE 84; RESP 16; TEMP 36.3; O2SAT 96; BMI 35.9
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
--- NOTE | 2023-12-06 10:08 | PM.OP ---
Brief Operative Note Date of Service: 12/06/23 Pre-op diagnosis: GERD, Screening Post-op diagnosis: other (Hiatal hernia, Int/External hemorrhoids) Procedure: EGD with biopsies, Colonoscopy to the cecum and TI Surgeon: Ron Jules MD Anesthesia: MAC Was an Woodwind Reeds Cutter used for this Procedure?: No Estimated blood loss (mL): 2.0 Pathology: other (A. EG Junction at 39cm) Condition: stable Disposition: PACU
[2023-12-06 10:09] VITALS: BP 125/72; PULSE 84; RESP 16; TEMP 36.4; O2SAT 99
[2023-12-06 10:24] VITALS: BP 122/78; PULSE 62; RESP 16; O2SAT 100
[2023-12-06 10:39] VITALS: BP 126/73; PULSE 65; RESP 16; TEMP 36.3; O2SAT 99
--- NOTE | 2023-12-06 10:52 | OP_ITS ---
DATE OF SERVICE: 12/06/2023 SURGEON: Ron Jules MD INDICATIONS: The patient presents for evaluation of gastroesophageal reflux, personal history of colon cancer, and colorectal cancer screening. Full consent has been obtained from him for this, including risks of bleeding and perforation. PREOPERATIVE DIAGNOSIS: POSTOPERATIVE DIAGNOSIS: PROCEDURE PERFORMED: Esophagogastroduodenoscopy with biopsies and colonoscopy to the cecum and terminal ileum. ESTIMATED BLOOD LOSS: COMPLICATIONS: ANESTHESIA: Monitored anesthesia care. ASSISTANTS: SPECIMENS: PREOPERATIVE DIAGNOSES: Gastroesophageal reflux, personal history of colon cancer, and colorectal cancer screening. POSTOPERATIVE DIAGNOSES: Gastroesophageal reflux, personal history of colon cancer, and colorectal cancer screening, small hiatal hernia, normal major papilla, normal anastomosis at 40 cm in the colon, internal and external hemorrhoids, question of anal condylomata vs, external hemorrhoids DESCRIPTION OF PROCEDURE: The patient was placed in the left lateral decubitus position. The Olympus video gastroscope was passed in the posterior oropharynx and upper esophagus under direct vision. The scope was passed slowly to the distal esophagus. The gastroesophageal junction appeared at 39 cm. There was some slight irregularity and some edema consistent with reflux but no definitive Mathias's mucosa nor any esophagitis. The scope entered the stomach. There was a small hiatal hernia. The scope was advanced to the pylorus, and the duodenum was cannulated to the descending portion. The duodenum including the bulb appeared normal without mass or ulceration. The area of the major papilla was able to be visualized well with the gastroscope, and this appeared normal without any sign of lesion nor adenomatous tissue. The remainder of the duodenum including the bulb appeared normal. The scope was withdrawn back to the stomach. The gastric antrum and body appeared normal with good peristalsis. The scope was retroflexed visualizing the proximal stomach carefully, which appeared normal, without any sign of mass or ulceration. The scope was straightened and withdrawn back to the esophagus. Biopsies were obtained at the EG junction at 39 cm. Proximal to that, the esophageal mucosa appeared normal. The scope was withdrawn from the patient. He was turned around for the colonoscopy. The digital rectal exam revealed what appeared to be some external hemorrhoids and/or possible condylomata. The Olympus video pediatric colonoscope was entered into the rectum and advanced easily to the cecum. Once in the cecum, I did identify a normal-appearing cecal pouch with appendiceal orifice and a normal-appearing ileocecal valve. The terminal ileum was cannulated and appeared normal. The scope was withdrawn back in the colon. The entire cecum and ileocecal valve appeared normal. The scope was slowly withdrawn assessing all mucosal surfaces carefully. Preparation was excellent. I did not visualize any sign of polyps, colitis, nor angiodysplasia. The anastomosis appeared normal at 40 cm. In the rectum, scope was retroflexed visualizing internal hemorrhoids but no other pathology. The rectal mucosa appeared normal. The scope was straightened and withdrawn from the patient. He tolerated both procedures well and was returned to the recovery area in stable condition. IMPRESSION: 1. Small hiatal hernia, gastroesophageal reflux. 2. Normal major papilla. 3. Normal anastomosis at 40 cm. 4. Internal hemorrhoids. 5. External hemorrhoids, question condylomata. PLAN: I would recommend a repeat colonoscopy in 1 year for further screening. He will continue to use famotidine on a p.r.n. basis for reflux. If there happens to be Mathias's esophagus noted on the biopsies without dysplasia, I would recommend a repeat upper endoscopy in 3 years. I will have him see Dr. Hawkins again to have him evaluate the perianal area and be sure there are not condylomata that need to be removed. This has been discussed with his significant other. MD ALEJANDRO Sarkar/HALEIGH / [id number] MTDD
--- NOTE | 2023-12-06 12:12 | HO.POSTANES ---
Post Anesthesia Evaluation Post Anesthesia Evaluation Date of Service: 12/06/23 Vital Signs: Vital Signs Temp Pulse Resp BP Pulse Ox O2 Del Method O2 Flow Rate 12/06/23 10:39 97.4 F 65 16 126/73 99 Room Air 12/06/23 10:24 62 16 122/78 100 Room Air 12/06/23 10:09 97.6 F 84 16 125/72 99 Nasal Cannula 2 12/06/23 07:57 97.4 F 84 16 125/70 96 Room Air Anesthesia: Monitored Mental Status: Awake Pain Control: Satisfactory Nausea/Vomiting: None Hydration: Adequate Anesthesia-Related Issues: No Anes. Related Issues
== END 2023-12-06 11:15 | disposition home or self-care (01) ==
PROVIDERS: PCP Registered Nurse; Visit Provider Internal Medicine
PROC: (CPT 45378; principal; 2023-12-06 08:40)
DX: Z12.11 Encounter for screening for malignant neoplasm of colon (principal); Z85.038 Personal history of other malignant neoplasm of large intestine; Z92.21 Personal history of antineoplastic chemotherapy; K64.8 Other hemorrhoids; K64.4 Residual hemorrhoidal skin tags; Z90.49 Acquired absence of other specified parts of digestive tract; Z98.0 Intestinal bypass and anastomosis status; K21.9 Gastro-esophageal reflux disease without esophagitis; K44.9 Diaphragmatic hernia without obstruction or gangrene; J45.909 Unspecified asthma, uncomplicated; E66.01 Morbid (severe) obesity due to excess calories; Z68.36 Body mass index [BMI] 36.0-36.9, adult; Z79.899 Other long term (current) drug therapy
CPT/HCPCS: 45378; 43239; 88305; J1596; J2704

== ENCOUNTER 2023-12-20 14:07 | Outpatient (AMB) | payer MEDICAID, SELFPAY ==
[2023-12-20 14:13] VITALS: BP 129/69; PULSE 62; BMI 36.3
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
== END 2023-12-20 14:37 | disposition home or self-care (01) ==
PROVIDERS: PCP Registered Nurse; Visit Provider Surgery
DX: Z85.038 Personal history of other malignant neoplasm of large intestine (principal)
CPT/HCPCS: 99213

== ENCOUNTER → 2023-12-20 14:07 | Outpatient (BNVA) | payer MEDICAID, SELFPAY | PROVIDERS: PCP Registered Nurse; Visit Provider Surgery | DX: Z85.038 Personal history of other malignant neoplasm of large intestine (principal) | CPT/HCPCS: 99212 ==

== ENCOUNTER 2025-02-26 11:33 | Day surgery (SDC) | payer MEDICAID, SELFPAY ==
[2025-02-22 13:39] VITALS: BMI 38.3
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
[2025-02-26 12:26] VITALS: BMI 36.6
[2025-02-26] MEDS: Lactated Ringers 1,000 ML 100 ML IVCONT (12:30)
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
[2025-02-26 12:39] VITALS: BP 126/77; PULSE 66; RESP 18; TEMP 36.8; O2SAT 97
[2025-02-26 14:01] VITALS: BP 96/61; PULSE 77; RESP 16; TEMP 37.1; O2SAT 95
--- NOTE | 2025-02-26 14:10 | P.BOP_ITS ---
Brief Operative Note Date of Service: 02/26/25 Pre-op diagnosis: GERD, Screening, Hx of colon cancer Post-op diagnosis: other (Hiatal hernia, GERD, Int/Ext hemorhoids) Procedure: EGD with bx, Colonoscopy to the cecum and TI Surgeon: Ron Jules MD Anesthesia: MAC Was an Dehydrogenation Supervisor used for this Procedure?: No Estimated blood loss (mL): 2.0 Pathology: other (A. EG Junction at 36cm) Condition: stable Disposition: PACU
[2025-02-26 14:16] VITALS: BP 115/72; PULSE 62; RESP 16; O2SAT 99
[2025-02-26 14:31] VITALS: BP 117/67; PULSE 52; RESP 16; O2SAT 100
[2025-02-26 14:36] VITALS: BP 129/87; PULSE 60; RESP 18; TEMP 36.1; O2SAT 98
--- NOTE | 2025-02-27 00:20 | OP_ITS ---
DATE OF SERVICE: 02/26/2025 SURGEON: Ron Jules MD INDICATIONS: The patient presents for evaluation of personal history of colon cancer, colorectal cancer screening, and gastroesophageal reflux. Full consent has been obtained from him for both procedures, including risks of bleeding and perforation. PREOPERATIVE DIAGNOSIS: POSTOPERATIVE DIAGNOSIS: PROCEDURE PERFORMED: Esophagogastroduodenoscopy with biopsies, and colonoscopy to the cecum and terminal ileum. ESTIMATED BLOOD LOSS: COMPLICATIONS: ANESTHESIA: Medication used, monitored anesthesia care. ASSISTANTS: SPECIMENS: PREOPERATIVE DIAGNOSES: Gastroesophageal reflux, personal history of colon cancer, colorectal cancer screening. POSTOPERATIVE DIAGNOSES: Gastroesophageal reflux, personal history of colon cancer, colorectal cancer screening, hiatal hernia, rule out Mathias esophagus, normal anastomosis, internal hemorrhoids. DESCRIPTION OF PROCEDURE: The patient was placed in the left lateral decubitus position. The Olympus video gastroscope was passed in the posterior oropharynx and upper esophagus under direct vision. The scope was passed slowly to the distal esophagus. The gastroesophageal junction was seen at 36 cm. This area was notable for some erythema, edema, and some slight irregularity consistent with possible Mathias mucosa. There was no evidence of any inflammation, nor ulceration. The scope entered into the stomach. There was a small hiatal hernia. The scope was advanced to the pylorus and the duodenum was cannulated. The scope was advanced to the 2nd and 3rd portions of duodenum. With the forward viewing of scope, I was able to achieve a good visualization of the major papilla with good flow of bile noted. There was no sign of any polypoid tissue on this. Biopsies were not obtained. It appeared very normal. The scope was withdrawn through the remainder of the duodenum, which appeared normal. The scope was withdrawn back in the stomach. The gastric antrum and body appeared normal with good peristalsis. The scope was retroflexed visualizing the proximal stomach carefully, which appeared normal, without any sign of mass or ulceration. The scope was straightened and withdrawn back into the esophagus. Biopsies were obtained at the EG junction at 36 cm. Proximal to this, the esophageal mucosa appeared normal. The scope was withdrawn from the patient. He was turned around for colonoscopy. The digital rectal exam revealed no abnormalities. The Olympus video pediatric colonoscope was entered into the rectum and advanced easily to the cecum. Once in the cecum, I did identify normal-appearing cecal pouch with appendiceal orifice and a normal-appearing ileocecal valve. The terminal ileum was cannulated and appeared normal. Scope withdrawn back in the colon. The entire cecum and ileocecal valve appeared normal. The scope was slowly withdrawn assessing all mucosal surfaces carefully. Preparation was excellent. I did not visualize any sign of polyps, colitis, or angiodysplasia. The anastomosis from his previous surgery appeared completely normal and patent between 40 and 50 cm. Once in the rectum, scope was retroflexed visualizing some internal hemorrhoids, but no other pathology. The rectal mucosa appeared normal. The scope was straightened and withdrawn the patient. Of note, the rectal exam did reveal external hemorrhoids, but I did not feel these represented condylomata as I had last time I saw him. The scope was withdrawn from the patient. He tolerated both procedures well and was returned to recovery area in stable condition. IMPRESSION: 1. Hiatal hernia, gastroesophageal reflux, rule out Mathias esophagus. 2. Normal major papilla. 3. Normal anastomosis. 4. Internal hemorrhoids. 5. External hemorrhoids. PLAN: The results of the biopsies will be checked. He reports that he uses famotidine p.r.n., but given today's findings, I shall give him a prescription to use omeprazole 20 mg daily rather than just p.r.n. He was advised not to use any aspirin and NSAIDs for 1 week. I would recommend a repeat colonoscopy within 1-2 years for close followup. If the biopsies show Mathias's esophagus I would recommend a followup endoscopy for surveillance biopsies in 3 years. Although, when I do his next colonoscopy, we most likely will repeat an upper endoscopy again to visualize the major papilla and make sure there is no sign of any polypoid tissue at that area. This has all been discussed with his in detail. MD ALEJANDRO Sarkar/HALEIGH / [phone] ANNE MARIE
== END 2025-02-26 15:07 | disposition home or self-care (01) ==
PROVIDERS: PCP Registered Nurse; Visit Provider Internal Medicine
PROC: (CPT 45378; principal; 2025-02-26 12:40)
DX: Z12.11 Encounter for screening for malignant neoplasm of colon (principal); Z85.038 Personal history of other malignant neoplasm of large intestine; Z90.49 Acquired absence of other specified parts of digestive tract; Z98.0 Intestinal bypass and anastomosis status; K64.8 Other hemorrhoids; K64.4 Residual hemorrhoidal skin tags; K21.9 Gastro-esophageal reflux disease without esophagitis; K44.9 Diaphragmatic hernia without obstruction or gangrene
CPT/HCPCS: 45378; 43239; 88305; 88313; J2003; J2704

== ENCOUNTER 2025-07-09 14:33 | Outpatient (REF) | payer MEDICAID, SELFPAY ==
--- OUTSIDE RECORDS SUMMARY | 2025-02-26 08:50 | XMS_ITS ---
Author Organization [facility] Address [address] [place] [id number] Care Team Providers Care Clinical Scientist Name Role Phone HumbleAutumn VÁZQUEZ Primary Care Provider UnaRon Jamison [phone] REASON FOR VISIT hx of colon ca, screening, gerd Encounters Encounter Location Date Provider Diagnosis [facility] Outpatient [address] [place], [place] [id number] 02/26/2025 Ron Jules Colon cancer scree yessica Z12.11 ; History of colon cancer Z85.038 ; Hiatal hernia K44.9 and Gastro-esophageal reflux disease without esophagitis K21.9 Assessments Encounter Date Diagnosis (ICD Code) Assessment Notes Treatment Notes Treatment Clinical Notes Section Notes 02/26/2025 Colon cancer screening (ICD-10 - Z12.11) 02/26/2025 History of colon cancer (ICD-10 - Z85.038) 02/26/2025 Hiatal hernia (ICD-10 - K44.9) 02/26/2025 Gastro-esophagea l reflux disease without esophagitis (ICD-10 - K21.9) Plan Of Treatment No Information Progress Notes * JV TILLEYDOB:1990 (34 yo M)Acc No.[id number]:02/26/2025 EGD and COL/MAC Patient: JV LONGO Provider: Moi Jules MD :1990 A ge:34 Y S ex:Male Date:02/26/2025 Address:[address] [place] [address] [id number] Pcp:Autumn Humble`, [employer] INST[employer]ER Subjective: * Chief Complaints: * 1 . Hx of colon ca, screening, gerd. * Medical History: Objective: * Vitals: Assessment: * Assessment: 1. C olon cancer screening - Z12.11 (Primary) 2 . H istory of colon cancer - Z85.038 3 . H iatal hernia - K44.9 4 . G debra-esophageal reflux disease without esophagitis - K21.9 Plan: * Treatment: * Procedure Codes: 4 5378 DIAGNOSTIC COLONOSCOPY, 27705 UPPER GI ENDOSCOPY, BIOPSY, Modifiers: 51 * * The named appointment provid er may or may not be the originator of this progress note, and it is not deemed complete until electronically signed by the appointment provider. Sign off status: Pending * Provider: Moi Jules MD Date: 0 02/26/2025 Generated for Mary wheat/Shayan/Samiraitting on: 0 07/09/2025 12:43 PM EDT
--- OUTSIDE RECORDS SUMMARY | 2025-07-09 15:00 | XMS_ITS | Encounter Summary ---
Author Organization [facility] Address [address] [place] [phone] Phone Care Team Providers Care Glue Bone Crusher Name Role Phone Sandra [place] See [place] CROOK Unavailable Perla Munoz RN Unavailable [phone] Autumn Miller SUGAR SAMPLER Primary Care Provider [phone] Encounter Details Date Type Department Care Team (Late st Contact Info) Description 03/11/2023 Procedure Pass [facility], Ct Scan - [facility] [address] [place] [address] Social History Tobacco Use Types Packs/Day Years Used Date Smoking Tobacco: Never Assessed Intimate Partner Violence Answer Date R ecorded Are you denied basic needs s uch as food, clothing, or medical care? No 03/11/2023 In the past 12 months have y ou been in a relationship with a person who hurts, threatens, or tries to control you? No 03/11/2023 Are you denied basic needs s uch as food, clothing, or medical care? No 03/11/2023 In the past 12 months have y ou been in a relationship with a person who hurts, threatens, or tries to control you? No 03/11/2023 Sex and Gender Information Value Date Recorded Sex Assigned at Male 03/11/2023 2:58 PM EDT Legal Sex Male 3:49 PM EDT Gender Identity Male 03/11/2023 2:58 PM EDT Sexual Orientation Not on file documented as of this encounter Functional Status * Calculated C-SSRS Risk Score (Lifetime/Recent) Answer Date of Assessment Author No Risk Indicated 03/11/2023 2:58 PM EDT Carey Saldana RN * [place] Suicide Severity Rating Scale (Screener/Recent Self-Report) Question Answer Date of Assessment Author 1. Wish to be (Past 1 Month) No 023 2:58 PM EDT Carey Saldana, RN 2. Non-Specific Active Suici trevor Thoughts (Past 1 Month) No 03/11/2023 2:58 PM EDT Carey Saldana, RN 6. Suicidal Behavior (Lifetime) No 3 2:58 PM EDT Carey Saldana RN documented as of this encounter Plan of Treatment Not on file documented as of this encounter Visit Diagnoses Not on filedocumented in this encounter Care Teams Glue Bone Crusher Relationship Specialty Start Date End Date Autumn Miller FNP [address] [place] [id number] PCP - General Nurse Practitioner 02/27/23 Sandra [place] MD [address] [place] [address] [address] [place] [address] [email or web address] Primary Oncologist Internal Medicine 03/01/23 Perla Munoz RN [address] [place] [address] [email or web address] Primary Infusion Nurse 03/03/23 documented as of this encounter Additional Source Comments The information contained in this document represents components of the legal health record. It is not the complete legal health record.[facility]
--- OUTSIDE RECORDS SUMMARY | 2025-07-09 15:00 | XMS_ITS | Clinical Summary ---
Author Organization [facility] ity Address [address] [place] [address] Care Team Providers Care Braid Cutter Name Role Phone Unavailable Primary Care Provider Unavailabl e Social History Tobacco Use Types Packs/Day Years Used Date Smoking Tobacco: Never Assessed Sex and Gender Information Value Date Recorded Sex Assigned at Not on file Legal Sex Male 10:48 PM EST Gender Identity Not on file Sexual Orientation Not on file Plan of Treatment Health Maintenance Due Date Last Done Comments DTaP,Tdap,and Td Vaccines (1 - Tdap) 2008 Hepatitis B Vaccines (1 of 3 - 19+ 3-dose series) 2008 COVID-19 Vaccine (2023-2 5 season) 2024 Depression Screening 11/29/2024 Influenza Vaccine (#1) 2025 HIB Vaccines Aged Out No longer eligi ble based on patient's age to complete this topic HPV Vaccines Aged Out No longer eligi ble based on patient's age to complete this topic Hepatitis A Vaccines Aged Out No long er eligible based on patient's age to complete this topic IPV Vaccines Aged Out No longer eligi ble based on patient's age to complete this topic MMR Vaccines Aged Out No longer eligi ble based on patient's age to complete this topic Meningococcal ACWY Vaccine Aged Out N o longer eligible based on patient's age to complete this topic Meningococcal B Vaccine Aged Out No l onger eligible based on patient's age to complete this topic Pneumococcal Vaccine: Pediat rics (0 to 5 Years) and At-Risk Patients (6 to 49 Years) Aged Out No longer eligible b ased on patient's age to complete this topic RSV Immunization Patients Un gregory 20 months Aged Out No longer eligible b ased on patient's age to complete this topic Varicella Vaccines Aged Out No longer eligible based on patient's age to complete this topic
--- OUTSIDE RECORDS SUMMARY | 2025-07-09 15:00 | XMS_ITS | Encounter Summary ---
Author Organization [employer] Address [address] [place] [address] Care Team Providers Care Clinique Counter Manager Name Role Phone [facility] Primary Care Provider [phone] Reason for Visit * Reason Onset Date Comments triage 12/16/2022 Encounter Details Date Type Department Care Team ([facility] st Contact Info) Description 12/16/2022 Telephone [facility] [address] [place] [address] [facility] [address] [place] [address] triage Social History Tobacco Use Types Packs/Day Years Used Date Smoking Tobacco: Never Smokeless Tobacco: Never Alcohol Use Standard Drinks/Week Comments Not Currently 0 (1 standard drink = 0.6 oz pur e alcohol) Depression Answer Date Recorded Patient Health Questionnaire-2 Score 0 11/03/2022 Sex and Gender Information Value Date Recorded Sex Assigned at Male 09/28/2022 10:15 AM EDT Legal Sex Male 10:15 AM EDT Gender Identity Male 09/28/2022 10:15 AM EDT Sexual Orientation Straight 09/28/2022 10 :15 AM EDT documented as of this encounter Miscellaneous Notes * Telephone Encounter - Ron Floyd - 12/16/2022 3:59 PM EST Symptom: Abdominal Pain - Male Outcome: Talk to a nurse or provider within 15 minutes Reason: Severe pain now The caller accepted this outcome documented in this encounter Plan of Treatment Upcoming Encounters Date Type Department Care Team (Late st Contact Info) Description 07/09/2025 3:15 PM EDT Office Visit [facility] [address] [place], [place] [id number] Chasity Christopher, OD [address] [place] [address] Arrived documented as of this encounter Visit Diagnoses Not on filedocumented in this encounter Care Teams Clinique Counter Manager Relationship Specialty Start Date End Date Autumn Miller FNP [address] [place], [place] [id number] PCP - General Family Medicine 11/03/22 documented as of this encounter
[2025-07-09 16:36] LABS: Anion Gap 10 (12-20); Blood Urea Nitrogen 17 mg/dL (9-16); Calcium 8.9 mg/dL (8.4-10.2); Carbon Dioxide 27 mmol/L (22-29); Chloride 108 mmol/L (96-108); Cholesterol 139 mg/dL (<200); Estimated Glomerular Filt Rate > 60; HDL Cholesterol 49 mg/dL (>40); Potassium 4.3 mmol/L (3.3-5.1); Sodium 141 mmol/L (135-145); Triglycerides 74 mg/dL (<150)
[2025-07-09 16:41] LABS: Hemoglobin A1C 124.6788 umol/L; Total Hemoglobin (HGBA1C) 3703.0349 umol/L
== END 2025-07-09 14:34 | disposition home or self-care (01) ==
LOC: HO.HHCL 14:33
PROVIDERS: PCP Registered Nurse; Visit Provider Registered Nurse
DX: E66.812 Obesity, class 2 (principal); E66.09 Other obesity due to excess calories; Z68.38 Body mass index [BMI] 38.0-38.9, adult
CPT/HCPCS: 36415; 80048; 80061; 83036